=== PATIENT | male | born 1945 | race Caucasian/White ===

== ENCOUNTER 2019-03-30 15:42 | Outpatient (CLI) | payer BC ==
--- NOTE | 2019-03-30 17:03 | MRI ---
MRI cervical spine. HISTORY: Complaining of neck pain. The patient also has history of cervical radiculitis. Multiplanar multisequence noncontrast enhanced MRI images cervical spine obtained. The cervical cord is unremarkable with no evidence of masses or lesions. C1-2: Unremarkable. C2-3: Unremarkable except C3-4: There is a mild broad-based disc bulge resulting in minimal compressi on of the thecal sac. The right neural foramen is patent. Moderate left C3-4 neural foraminal narrowing is seen due to uncal vertebral osteophyte hypertrophy. C4-5: Disc desiccation seen. There is a broad-based disc osteophyte complex centrally compressing the thecal sac resulting in moderate degree of central and neural foraminal narrowing. C5-6: Disc desiccation seen. There is a broad-based disc osteophyte complex centrally compressing the thecal sac resulting in moderate severe central and lateral recess stenosis. Moderate right C5-6 neural foraminal narrowing is seen. The left neural foramen demonstrates severe narrowing. C6-7: There is a broad-based disc osteophyte complex centrally compressing the thecal sac resulting i n mild central stenosis. The neural foramen are patent. C7-T1: Unremarkable. Heterogeneity seen in the thyroid lobes with asymmetric enlargement of the posterior aspect of the ri ght thyroid. Correlate with dedicated thyroid sonography. IMPRESSION: broad-based disc osteophyte complexes with compression of the thecal sac involving C4-5 a nd C5-6. Neural foraminal narrowing also seen at these levels most significant level of stenosis is the left C5-6 neural foramen.
--- NOTE | 2019-03-30 17:25 | MRI ---
Lumbar spine MRI without contrast: 03/30/2019 COMPARISON: None HISTORY: Low back pain radiating down bilateral lower extremities, bilateral radiculopathy TECHNIQUE: Multiplanar multisequence MR imaging of lumbar spine without contrast FINDINGS: The sagittal STIR imaging demonstrates no focal area of osseous marrow edema. Foci of artif act noted within the subcutaneous fat posterior to L4 and L5 consistent with prior surgery. On the basis of 5 lumbar type vertebral bodies, conus medullaris terminates at L1. T12-L1: Anterior osteophyte formation on the left. Intervertebral disc height and signal intensity wi thin normal limits with no significant central canal or neural foraminal stenosis. L1-2: Mild bilateral facet hypertrophy. Intervertebral disc height and signal intensity within normal limits. No central canal or neural foraminal stenosis. Left-sided anterior osteophyte formation. L2-3: Mild bilateral facet hypertrophy. No significant central canal or neural foraminal stenosis. Va cuum disc formation noted. Prominent anterior osteophyte formation. L3-4: Bilateral facet hypertrophy. Disc desiccation and anterior osteophyte formation. No significant central canal or neural foraminal stenosis. L4-5: Disc space narrowing and disc desiccation with bilateral facet hypertrophy. No significant cent ral canal or neural foraminal stenosis. Laminectomy changes noted. L5-S1: Mild bilateral facet hypertrophy. Anterior osteophyte formation. No significant central canal or neural foraminal stenosis. Imaged retroperitoneal structures demonstrate no acute findings. IMPRESSION: Postoperative and degenerative changes of the lumbar spine.
== END 2019-03-30 15:43 | disposition home or self-care (01) ==
LOC: SCSMRI 15:42
PROVIDERS: ATTEND General Practice
DX: M47.26 Other spondylosis with radiculopathy, lumbar region (principal); M54.12 Radiculopathy, cervical region; M25.78 Osteophyte, vertebrae; M48.02 Spinal stenosis, cervical region
CPT/HCPCS: 72141; 72148

== ENCOUNTER 2019-04-04 19:13 | Inpatient (IN) | payer MEDICARE, BC ==
[2019-04-04] MEDS ORDERED: Pantoprazole 40 MG VIAL ONE (19:58)
[2019-04-04 20:00] LABS: PTT 23.7 SEC (22.9-36.1); Prothrombin Time 13.4 SEC (12.0-14.7)
--- NOTE | 2019-04-04 20:02 | RAD ---
XR Chest 1 View Portable History: [GI bleed. Abdominal pain.] Comparison: Radiograph 2010 Findings: Lungs are clear. No pneumothorax or effusion. Cardiac silhouette and mediastinal contours a re within normal limits. Impression: No acute intrathoracic abnormality.
[2019-04-04 20:04] LABS: #Basophils 0.2 thou/uL (0.0-0.2); #Eosinphils 0.1 thou/uL (0.0-0.7); #Lymphocytes 3.9 thou/uL (1.20-3.40); #Monocytes 0.6 thou/uL (0.11-0.59); #Neutrophils 7.4 thou/uL (1.40-6.50); %Basophils 1.5 % (0.0-1.0); %Eosinophils 1.1 % (0.0-10.0); %Lymphocytes 31.6 % (21.0-51.0); %Monocytes 5.2 % (0.0-10.0); %Neutrophils 60.5 % (42.0-75.0); Hemoglobin 15.9 g/dL (14.0-18.0); Mean Corpuscular HGB CONC 36.9 g/dL (32.0-36.0); Mean Corpuscular Hemoglobin 32.5 pg (27.0-31.0); Mean Corpuscular Volume 87.9 fL (78.0-98.0); Mean Platelet Volume 6.5 fL (7.4-10.4); Platelet Count 233 thou/uL (130-400); RBC Distribution Width 10.8 % (11.5-14.5); Red Blood Cell (RBC) Count 4.89 mill/uL (4.70-6.10); White Blood Cell (WBC) Count 12.3 thou/uL (4.8-10.8)
[2019-04-04 20:09] LABS: ALT (SGPT) 31 U/L (8-55); AST (SGOT) 29 U/L (5-34); Albumin 3.9 g/dL (3.4-4.8); Alkaline Phosphatase 50 U/L (40-150); Anion Gap 15 mmol/L (10-20); BUN (Urea Nitrogen) 26 mg/dL (8.4-25.7); Bilirubin, Total 0.7 mg/dL (0.2-1.2); Calc. Creatinine Clearance 0 mL/min (70-130); Carbon Dioxide 17 mmol/L (23-31); Chloride 107 mmol/L (98-107); Estimated GFR-MDRD 70; Globulin 2.6 g/dL (2.4-3.5); Glucose 199 mg/dL (83-110); Potassium 4.2 mmol/L (3.5-5.1); Protein, Total 6.5 g/dL (5.8-8.1); Sodium 135 mmol/L (136-145)
--- NOTE | 2019-04-04 21:02 | CT ---
CT Abdomen Pelvis W Con History: [GI bleed. Abdominal pain.] Comparison: None. Findings: Lung bases are clear. No pericardial effusion. Diffuse hepatic steatosis. There is a diverticulum of the second portion the duodenum. Normal proxima l small bowel rotation. Spleen and pancreas are unremarkable. Celiac trunk and superior mesenteric arteries are patent. The a ortoiliac contour is nonaneurysmal. Small fat-containing left direct inguinal hernia. Mild diverticular disease of the sigmoid colon without active current inflammation. The appendix is f elt to be visualized and appears normal. No hydronephrosis. 4 mm calculus superior left renal collecting system. Portal vein is patent with antegrade flow. Hypodensity, exophytic, interpolar right kidney measures fluid attenuation, suggestive of a cyst. Sma ll periumbilical fat-containing hernia. Moderate degenerative changes of the lumbar spine. Lower thoracic spine hemangiomas present. No free intraperitoneal gas or fluid. Impression: No acute intra-abdominal abnormality.
[2019-04-04] MEDS ORDERED: Fentanyl 100 MCG/2 ML VIAL ONE (21:03)
[2019-04-04 21:30] LABS: Iron 75 ug/dL (65-175); Iron Binding Capacity, Total 276 mcg/dL (261-462)
[2019-04-04] MEDS ORDERED: Ondansetron PF 4 MG/2 ML Vial IVP PRN (22:02)
[2019-04-04] MEDS ORDERED: Ondansetron ODT 4 MG TAB SL PRN (22:02)
[2019-04-04] MEDS ORDERED: Sodium Chloride 0.9% 1,000 ML IV SCH (22:15)
[2019-04-04 22:18] VITALS: BMI 31.6
[2019-04-04] MEDS ORDERED: HYDROcodone/Acetaminophen 5/325 mg Tablet PO PRN (23:25)
[2019-04-04] MEDS ORDERED: Dextrose 50% Abboject 50 ML SYRINGE SLOW IVP PRN (23:26)
[2019-04-04] MEDS ORDERED: Dextrose 5% in Water 1,000 ML IV PRN (23:26)
[2019-04-04] MEDS ORDERED: HumaLOG 300 UNITS/3 ML VIAL SC PRN (23:26)
[2019-04-04] MEDS: Pantoprazole 80 MG, Admixture Fee 1 EACH in Sodium Chloride 0.9% 100 ML IVPB SCH (23:35)
[2019-04-04] MEDS: Sodium Chloride 0.9% 1,000 ML IV SCH (23:42)
[2019-04-04 23:46] LABS: Hemoglobin 14.8 g/dL (14.0-18.0)
[2019-04-05] MEDS: Morphine 2 MG/ML SYRINGE SLOW IVP PRN ×2 (00:21→05:48)
--- NOTE | 2019-04-05 03:27 | CON ---
DATE OF CONSULTATION: 04/04/2019 REASON FOR CONSULT: GI hemorrhage. CONSULTING PHYSICIAN: Yamilet Hernández MD HISTORY OF PRESENT ILLNESS: Mr. Gordon is a pleasant 73-year-old gentleman who was admitted to the hospital ICU for GI bleeding with hemodynamically instability when he presented to the emergency room. He reports that this morning about 7, he started passing bloody stools, he got a couple and then actually he went to his regular physician, Dr. Garcias for routine followup. There, he seemed very stable and had not bled in several hours, doctor had recommended that if it resumed, he was going to need to come to the emergency room. After that, he had another bloody stool which was smaller in his recollection, but he began to feel weak and dizzy and his daughter brought him here to [facility]. He described the stool to be very dark and black and very malodorous, but there was a little bit red tinge to the bowl. He takes an aspirin daily 81 mg, but takes no other NSAIDs. In the emergency room, he initially had a pulse of well over 100, blood pressure 103/69. At one point, his blood pressure was 97/62 with a pulse of 118. He responded to a fluid resuscitation, emergency room gave 1 unit of blood. His hemoglobin, however, was 16.9 back in 07/2015, it is 15.9 at 1940 hours. His MCV was normal. His white count was 8.4, and then at 1940 hours this evening it was 12.3. His platelet count was 233. His daughter who is at the bedside reports that his hemoglobin was actually 19 earlier a couple of weeks ago. She wonders if this is related to his diabetes which has been poorly controlled with sugars in the 300 to 400 range just recently last week and he was started on insulin. Prior to that, he had been on Januvia, metformin, and glyburide of poor control and then had seen an hotel casino floorperson in [place], [place] who started him on the insulin. He does not recall having elevated hemoglobins like that in the past or having any blood disorders. He does note, however, that he has been having muscle soreness and back problems with some severe back pain for which he went to the [facility] about 2 weeks ago. There, he was given steroid injection and to follow up with either Neurosurgery or Neurology. He has had some back surgeries in the past, and he states he recently was told that he probably had a disk problem. He is adamant that he has been taking no [id number] or prescribed NSAIDs. Another issue he had noted recently with his primary physician and acknowledges is that his "muscle enzymes" have been high. Both stated they were not overly concerned about this. When asked this is a CPK, neither him or his daughter were sure that was it. Presently, he has had no further bleeding since about 5 this evening. He has had no nausea or vomiting. He reports about a 10-pound weight loss attributes this to his poorly controlled diabetes. He has some lower abdominal discomfort, but no fever or chills, or severe pain. He has no nausea and he has had no vomiting. PAST MEDICAL HISTORY: He has had chronic back issues, had surgery x2. He has had a bulging disk diagnosed recently. He has had cardiac stents, the last about [address] Aidan Apple. He had a GI bleed about 4 or 5 years ago. He has been to Med. He states he did an upper scope and did not find anything. He did a lower scope, but did not find anything and after that, his antiplatelet agents were stopped. He was dropped to 81 mg aspirin, told not to take ibuprofen or Aleve. He has had a colonoscopy as recently as 4-5 years ago in our office for colon cancer screening and history of polyps and a couple of adenomas removed. He denies any previous myocardial infarction or history of heart failure. He has poorly-controlled diabetes type 2. He had sequela of retinopathy from that. PAST SURGICAL HISTORY: Cardiac stents, back surgery x2, bilateral cataract surgery, and endoscopies as noted above. PSYCHIATRIC HISTORY: Negative. SOCIAL HISTORY: Negative for alcohol, drugs, or tobacco. Lives in [place], [place]. He is accompanied by his daughter here today. ALLERGIES: NONE KNOWN. MEDICATIONS: 1. . 2. Levothyroxine 75 mcg daily. 3. Baby aspirin daily. 4. He was previously on statins, but did not tolerate those secondary to muscle aches and pain. Present medications here in the ICU; he is on a Protonix drip. He is on Zofran p.r.n., p.r.n. morphine, and normal saline at 100 an hour. Home medications; he has had some hydrocodone in the past. He was on Flexeril and glimepiride, he is off that now. He is on calciferol, some metformin that has been removed from his medicines. REVIEW OF SYSTEMS: Myalgias, diffuse. He also had some back pain that made difficult for him to walk recently. He has lost about 10 pounds. His appetite has been down some. He attributes this to some of his diabetic problems recently and change to what he is eating. He denies any reflux, heartburn, indigestion. He denies any chest pain or shortness of breath. He feels generally weak presently. He has no dysuria, frequency, urgency, fever, chills, rashes, vision changes, headache, focal weakness, seizures. PHYSICAL EXAMINATION: VITAL SIGNS: Temperature is 98, pulse 75, blood pressure 106/66. GENERAL: He is resting comfortably, but he is julia complected. HEENT: Oropharynx is without lesions. NECK: Supple without any adenopathy. LUNGS: Clear. HEART: Sounds are distant. ABDOMEN: Has positive bowel sounds. There is an umbilical hernia which is reducible. There is no rebound. There is no guarding. There is no inguinal adenopathy. EXTREMITIES: No clubbing, cyanosis, edema. SKIN: Without rash or lesions. LABORATORY DATA: Sodium 135, potassium 4.2, chloride 107, bicarb 17, BUN 26, creatinine 1.04. On 08/15/2015, his BUN was 11 and creatinine was 0.97. Iron is 75, TIBC 276, ferritin is 197. AST and ALT are 29 and 31, alkaline phosphatase is 50, albumin 3.9, total protein 6.5. INR was 1. He was Hemoccult positive in the emergency room. IMAGING STUDIES: I reviewed his CAT scan. This reportedly showed no acute intraabdominal pathology. He had some fatty liver present. Spleen and pancreas are unremarkable. Celiac vessels are normal. Small umbilical hernia. Left direct inguinal hernia. These films were reviewed by myself. Chest x-ray, lungs clear. Cardiac mediastinal contour is normal. ASSESSMENT: 1. Gastrointestinal bleed. He has a little bit of elevated BUN, but also some renal insufficiency and maybe has been dehydrated recently with a reported hemoglobin of 19 recently in his primary physician's office. This has been attributed to some dehydration related to frequent urination, presumptively related to his poorly-controlled diabetes. He has been started on different insulin recently and has been doing better with that. His hemoglobin here dropped down to 15. It was mildly unstable on admission, but that is corrected now. His CAT scan does show diverticulosis coli. His stool has been described as black, but there was some red mix in the bowl. On my rectal exam this evening, it is fairly black with a slight dark red maroon tinge to it. There was no clot and the rectal vault was empty. He had no overt hemorrhoids. He has a history of bleeding in 2013 or 2014 [facility]. It sounds like that may have been diverticular. His upper and lower endoscopies were unrevealing except for diverticular disease. He has had no bleeding since. He takes no NSAIDs or blood thinners, just a baby aspirin. His diverticular disease is limited to the left colon and with the description of black stool, I think he will need an upper endoscopy to rule out upper GI source. If this is negative, he will probably need a repeat colonoscopy as he has not had one about 5 years. He has not had one sine 09/2015. I am afraid of acute bleeding tonight. A tagged red blood cell scan would be indicated. I agree with his IV fluids, we will drop into 75 an hour as he is stable at this point in time and agree with the Protonix drip. Again, if he has acute bleeding tonight, we will get a tagged scan. 2. With regard to his history of muscle soreness, we will go ahead and get a CPK as he related that he had some elevated muscle enzymes of unclear etiology. 3. With regard to his back pain, he did have an MRI of his cervical and lumbar spine with Dr. Garcias on 03/30. It showed degenerative changes in lumbar spine, broad-based disk osteophyte complexes, compression of thecal sac involving C4-C5 and C5-C6 with some neural foraminal narrowing, most significant with some stenosis at C5-C6 foramina. 4. History of diabetes, poorly controlled, sugar is 199. We will get a hemoglobin A1c, and his overall control has been lately I suspect not good. Job ID: [id number]
--- NOTE | 2019-04-05 04:06 | HP ---
PRIMARY CARE PHYSICIAN: Dr. Peña [facility]. CODE STATUS: Full code. TIME OF EVALUATION: 10:40 p.m. CHIEF COMPLAINT: Black stools. HISTORY OF PRESENT ILLNESS: This is a 73-year-old male patient with past medical history of previous GI bleeding, also back problems, cardiac stents, diabetes type 2, came to the hospital after having an episode of melena x3, also have some red blood in the stool. The patient reported the symptom started early this morning. The patient went to see his PCP, who told him to go to the ER and symptoms got worse. The patient got very weak and lightheaded, also had some nausea. No vomiting. Symptoms were mild to moderate. No clear triggers, no alleviating factor. He was found to be hypotensive with systolic in the 80s with heart rate in the 110s, with ambulation, heart rate went up to 140s to 150s, sinus tachycardia. For that reason, he started getting transfusion in [facility] and was sent to our hospital placing him in ICU for close monitoring. Dr. Higgins has been consulted. REVIEW OF SYSTEMS: CONSTITUTIONAL: No fevers or generalized weakness. RESPIRATORY: No cough, sputum production, or shortness of breath. CARDIOVASCULAR: No chest pain, or palpitation. GASTROINTESTINAL: No nausea, vomiting, diarrhea or abdominal pain. FICTION AND NONFICTION AUTHOR: No dizziness, headache, or feeling lightheaded. GENITOURINARY: No burning on urination. EXTREMITIES: No leg swelling. All other systems were reviewed and negative except for the findings mentioned above. PAST MEDICAL HISTORY: As mentioned in the HPI. PAST SURGICAL HISTORY: Cardiac stents, back surgery x2, bilateral cataracts. PSYCHIATRIC HISTORY: No previous psychiatric history. SOCIAL HISTORY: The patient denies alcohol use. The patient denies drug use. No smoking history. FAMILY HISTORY: Reviewed and the patient has a mother with blood cancer and father with liver cancer. KNOWN ALLERGIES: No known drug allergies. REPORTED MEDICATIONS: Tresiba and levothyroxine. PHYSICAL EXAMINATION: VITAL SIGNS: On presentation, blood pressure 103/69 with heart rate 95, respiratory rate was 17, oxygen saturation was 96% on room air. GENERAL APPEARANCE: The patient is alert, oriented, not in acute distress. HEENT: Eyes normal conjunctivae. Moist oral mucosa. Anicteric. No JVD. RESPIRATORY: Bilateral air entry. No rales. No wheezing. Symmetric expansion. CARDIOVASCULAR: Normal rate, regular rhythm. No murmurs. No gallop. No edema. ABDOMEN: Soft, normal bowel sounds. MUSCULOSKELETAL: Baseline range of motion and strength. No tenderness. SKIN: Warm, intact. No pallor. No rash. No redness. Peripheral pulses are present. Capillary refill seems to be intact. NEUROLOGIC: No evidence of any new or focal weakness. Baseline speech. Cranial nerves seems to be intact. PSYCHIATRIC: The patient has good mood. No anxiety. Optimal judgment. IMAGING STUDIES: EKG was reviewed. The patient has normal sinus rhythm with a rate of 96 with Q-waves in lead II, III and AVF. No other significant changes. Abdomen and pelvis CT was performed and it was reported as no acute intraabdominal abnormality. The chest x-ray was reviewed and the patient has no acute intrathoracic abnormality. LABORATORY DATA: Labs were reviewed. The patient presented with white count 12.3, hemoglobin 15.9, the repeated one 14.8, and the platelet count 233. Coagulation; PT 13.4, INR 1.0, PTT 23.7. Chemistry; sodium 135, potassium 4.2, chloride 107, carbon dioxide 17, anion gap 15, BUN 26, creatinine 1.0, GFR 70, glucose 199, calcium 9.0, iron 175, TIBC 276, ferritin 197, total bilirubin 0.7, AST 29, ALT 31, alkaline phosphatase 50 with serum total protein 6.5, albumin 3.9, globulin 2.6, albumin globulin ratio is 1.5. ASSESSMENT AND PLAN: The patient will be placed in the hospital with following medical problems: 1. Acute gastrointestinal bleeding, the patient will receive blood transfusion that was started in ER, we will continue to monitor hemoglobin. We consulted GI and we will follow recommendations. Protonix, watch for hemodynamic instability. 2. Hyponatremia, sodium 135, this is mild, we will monitor, we will treat with hydration with NS that the patient is receiving already. 3. Uncontrolled diabetes. The patient presented with hyperglycemia. Blood sugar 199. We will place the patient on sliding scale for optimal control. As of now, the patient will be n.p.o. 4. History of coronary artery disease, this is a chronic problem, seems to be stable. We will monitor and treat accordingly. 5. Hypothyroidism, reconcile home medications. Continue hormone replacement. Job ID: [id number]
[2019-04-05 05:00] LABS: Hemoglobin 14.1 g/dL (14.0-18.0)
[2019-04-05] MEDS: Levothyroxine Sodium 75 MCG TAB PO SCH (05:40)
--- NOTE | 2019-04-05 09:13 | PRG ---
DATE OF SERVICE: 04/05/2019 SUBJECTIVE: The patient is seen and examined at the bedside. He is getting ready for his colonoscopy this morning by Dr. Higgins. He has some abdominal discomfort in the lower parts of his abdomen, but not severe. It is kind of aching. Otherwise, he feels okay. OBJECTIVE: VITAL SIGNS: Blood pressure is 92/55, pulse is 77, respiratory rate is 21, and O2 saturation 97% on room air. HEENT: His head is atraumatic and normocephalic. Eyes are PERRLA. Sclerae are nonicteric. Oral mucosa is slightly dry. NECK: Supple. LUNGS: Breath sounds are diminished at both bases. HEART: S1 and S2 normal. No S3. No S4. ABDOMEN: Soft, nontender. Bowel sounds are present. No organomegaly. There is some pain on palpation in the pelvic area bilaterally. No guarding. No masses. EXTREMITIES: No clubbing, cyanosis, or edema. He has good pulses on both tibialis posterior and dorsalis pedis arteries similar bilaterally. LABORATORY DATA: Labs showed hemoglobin of 14.1, hematocrit 40.8, glucose 117, and creatine kinase 49. Occult blood in the stool is positive. IMPRESSION: 1. Acute gastrointestinal bleeding, presenting with melena on Protonix drip, hemoglobin stable, getting ready for colonoscopy. 2. Uncontrolled diabetes mellitus, type 2, recently changed to Tresiba by casino cage manager. His glycemia is down to 100s now. 3. History of coronary artery disease, chronic, stable. 4. Hypothyroidism, on replacement. PLAN: Continue PPI, IV drip. Continue Synthroid. Continue sliding scale with insulin, mild level. Colonoscopy today. Follow up with Jackelyn and H. Job ID: [id number]
[2019-04-05] MEDS: Pantoprazole 80 MG, Admixture Fee 1 EACH in Sodium Chloride 0.9% 100 ML IVPB SCH ×2 (09:49→21:06)
--- NOTE | 2019-04-05 09:56 | CON ---
DATE OF CONSULTATION: HISTORY OF PRESENT ILLNESS: Toni Gordon is a 73-year-old gentleman, who is 214 pounds, 5 feet 9 inches, presented with symptoms of maroon and dark black stools. He is lightheaded. He is having significant leg pain without any abdominal pain, nausea, vomiting. He has had previous GI bleed 10 years ago. Apparently, workup at that time was not conclusive. PAST MEDICAL HISTORY: Coronary artery disease, chronic pain, peripheral neuropathy. Otherwise as noted pertinent for his carotid disease, chronic pain, arthritis, diabetes, previous GI bleed. PREVIOUS SURGERIES: Three cardiac stents, back surgery twice, cataract surgery. SOCIAL HISTORY: He is a retired [employer]. No alcohol or tobacco abuse. ALLERGIES: PRESUMABLY FLU-LIKE SYMPTOMS FROM STATINS. HOME MEDICATIONS: Synthroid 75, Tresiba 100 units, aspirin 81. PHYSICAL EXAMINATION: GENERAL: Awake, alert, responsive, in no distress. VITAL SIGNS: Sats are 95% on room air, temperature 98, blood pressure 102/61, respiratory rate 18. CHEST: No wheezing, crackles. CARDIAC: Normal S1, S2. No gallops. ABDOMEN: No masses. LABORATORY DATA: He had a chest x-ray taken yesterday, which shows no acute infiltrates. CT of abdomen was otherwise unrevealing. H and H 14 and 40. Chemistries were unremarkable. Glucose 170. ASSESSMENT: 1. Gastrointestinal bleed. 2. Obesity. 3. Diabetes. 4. Coronary artery disease. 5. Peripheral neuropathy. PLAN: Await GI input. He is already on Protonix. Supportive care. We will follow him in the ICU. Consultation note, 70 minutes, 50% direct patient care. Job ID: [id number]
[2019-04-05 12:00] LABS: Hemoglobin 14.2 g/dL (14.0-18.0)
[2019-04-05] MEDS ORDERED: Lidocaine 1% PF 5 ML VIAL ONE (15:23)
[2019-04-05] MEDS ORDERED: PROPOFOL 200 MG/20 ML VIAL ONE (15:23)
[2019-04-05 17:28] LABS: Hemoglobin 13.5 g/dL (14.0-18.0)
[2019-04-05] MEDS ORDERED: GoLYTELY 4,000 ml Bottle PO SCH (18:00)
[2019-04-05] MEDS: Sodium Chloride 0.9% 1,000 ML IV SCH ×2 (18:11→21:10)
--- NOTE | 2019-04-05 22:45 | OP ---
DATE OF PROCEDURE: 04/05/2019 CHIEF VENDOR QUALITY SURGEON: None. PROCEDURES PERFORMED: EGD, diagnostic. INDICATION: Melena. MEDICATIONS: See Anesthesia record. FINDINGS: After discussion of the risks, benefits, and alternatives of the procedure, informed consent was obtained and witnessed. Pre-endoscopic cardiopulmonary examination was satisfactory. Time-out was performed before sedation was achieved. Sedation was achieved with Anesthesia assistance in the endoscopy unit. A Pentax adult upper endoscope was placed into the oropharynx and passed through the cricopharyngeus under direct visualization. The esophageal mucosa appeared normal throughout with a normal-appearing Z-line. The endoscope was advanced into the stomach. Forward and retroflexed views of the entire gastric mucosa were obtained. The gastric mucosa appeared normal throughout. There was no evidence of any old blood or active bleeding or bleeding lesion. The endoscope was advanced through the pylorus and into the first and second portions of the duodenum, which also appeared normal. The upper endoscope was completely withdrawn and the patient allowed to recover. The patient tolerated the procedure well. There were no immediate postprocedure complications. IMPRESSION: Normal EGD. RECOMMENDATION: Administer bowel preparation tonight for colonoscopy tomorrow. Job ID: [id number]
[2019-04-06] MEDS: Morphine 2 MG/ML SYRINGE SLOW IVP PRN ×2 (02:13→07:52)
[2019-04-06] MEDS: Levothyroxine Sodium 75 MCG TAB PO SCH (06:26)
[2019-04-06 06:38] LABS: Hemoglobin 12.6 g/dL (14.0-18.0)
[2019-04-06] MEDS: Pantoprazole 80 MG, Admixture Fee 1 EACH in Sodium Chloride 0.9% 100 ML IVPB SCH ×2 (07:29→18:36)
--- NOTE | 2019-04-06 08:31 | PRG ---
DATE OF SERVICE: 04/06/2019 SUBJECTIVE: The patient is seen and examined at the bedside. He is somewhat drowsy this morning. He just had an injection of morphine for his pain in lower extremities. He is getting ready for colonoscopy, although he is not very well prepared for that. OBJECTIVE: VITAL SIGNS: Blood pressure is 99/59, pulse is 68 respiratory rate is 9. Pulse oximetry is within normal limits. HEENT: His head is atraumatic and normocephalic. Eyes are PERRLA. Sclerae are nonicteric. Conjunctivae pinkish. Oral mucosa is moist. NECK: Supple. LUNGS: Clear. HEART: S1, S2 normal. No S3. No S4. ABDOMEN: Soft, nontender. Bowel sounds are present. No organomegaly. EXTREMITIES: No clubbing, cyanosis or edema. NEUROLOGICAL EXAMINATION: He is alert and oriented x4. He is somewhat drowsy from the morphine injection he just recently got, but he is able to move his all four extremities and he has some peripheral neuropathy in the lower extremities. LABORATORY DATA: Labs showed his hemoglobin level at 13.5, hematocrit 38.4. Glycemia is ranging from 117 to 241. IMPRESSION: 1. Acute gastrointestinal blood loss, status post esophagogastroduodenoscopy, which was negative. Preparation for colonoscopy is made today. Continue Protonix drip. Hemoglobin is stable. 2. Uncontrolled diabetes mellitus, most likely because of current changes on his regimen. 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 3. History of coronary artery disease, chronic, stable. 4. Hypothyroidism, on replacement. PLAN: He is going to have colonoscopy this morning. We will continue current regimen. We will continue sliding scale and he had most likely bleed from diverticular disease. Job ID: [id number]
--- NOTE | 2019-04-06 09:07 | PRG ---
DATE OF SERVICE: 04/06/2019 SUBJECTIVE: This morning, awake, alert, and responsive. He is to go for colonoscopy since he did have a bowel prep. OBJECTIVE: VITAL SIGNS: Blood pressure is 99/59, pulse 80, respirations . CHEST: No wheezing. CARDIAC: Normal S1, S2. No gallops. ABDOMEN: No masses. LABORATORY DATA: Hemoglobin is 12.6. Glucose 102. ASSESSMENT: Gastrointestinal bleed, hypothyroidism, obesity, diabetes. PLAN: Pulmonary follow while in the ICU. Disposition following his colonoscopy. Job ID: [id number]
[2019-04-06] MEDS: Sodium Chloride 0.9% 1,000 ML IV SCH ×2 (10:33→23:04)
[2019-04-06 12:32] LABS: Hemoglobin 12.9 g/dL (14.0-18.0)
[2019-04-06] MEDS ORDERED: ePHEDrine 50 MG/ML VIAL ONE (17:28)
[2019-04-06] MEDS ORDERED: Lidocaine 1% PF 5 ML VIAL ONE (17:28)
[2019-04-06] MEDS ORDERED: PROPOFOL 200 MG/20 ML VIAL ONE (17:28)
[2019-04-06] MEDS ORDERED: PHENYLEPHRINE-NS 100 MCG/ML 10 ML SYRINGE ONE (17:28)
[2019-04-06] MEDS ORDERED: Glycopyrrolate 0.2 MG/ML 5 ML SYRINGE ONE (17:28)
[2019-04-06] MEDS ORDERED: Promethazine HCl 25 MG/ML VIAL IM PRN (17:33)
[2019-04-06] MEDS ORDERED: Ondansetron HCl/PF 4 MG/2 ML Vial IVP PRN (17:33)
[2019-04-06] MEDS ORDERED: Promethazine HCl 25 MG/ML VIAL SLOW IVP PRN (17:33)
[2019-04-06] MEDS ORDERED: Morphine Sulfate 2 MG/ML SYRINGE SLOW IVP PRN (17:33)
--- NOTE | 2019-04-06 23:40 | OP ---
DATE OF PROCEDURE: 04/06/2019 FINISHING PAN OPERATOR SURGEON: None. PROCEDURE PERFORMED: Colonoscopy, diagnostic. INDICATIONS: 1. GI bleeding. 2. Negative EGD yesterday. MEDICATIONS: See Anesthesia record. FINDINGS: After discussion of the risks, benefits, and alternatives of the procedure, informed consent was obtained and witnessed. Pre-endoscopic cardiopulmonary examination was satisfactory. Time-out was performed before sedation was achieved. Sedation was achieved with anesthesia assistance in the endoscopy unit. Digital rectal exam was performed, which was unremarkable. A Pentax adult colonoscope was inserted into the anus and passed forward to the cecum in the usual fashion. The cecal base was identified by the appendiceal orifice as well as the ileocecal valve. The terminal ileum was not intubated. The colonoscope was slowly withdrawn in a gradual circumferential manner with careful examination of the colonic mucosa. The quality of the prep was poor. There was a large amount of semi-liquid dark green stool throughout the colon. The prep was certainly not adequate to identify small colon polyps. It is possible that there may be small mucosal based lesions that might have been missed. However, there was no evidence of any old blood or active bleeding throughout the colon. The stool was dark and greenish in color, but there was no evidence of any fresh blood. The patient had extensive diverticulosis throughout the left side of the colon and also internal hemorrhoids demonstrated on retroflexion. The colonoscope was completely withdrawn and the patient allowed to recover. The patient tolerated the procedure well. There were no immediate postprocedure complications. IMPRESSION: 1. Poor bowel prep, with a large amount of semi-liquid dark green stool throughout the colon. 2. No evidence of any old blood or active bleeding. 3. Internal hemorrhoids. 4. Left-sided diverticulosis. RECOMMENDATIONS: 1. Advance diet. 2. Follow up H and H tomorrow. If stable, okay to discharge from a GI perspective. 3. Follow up in the GI Clinic with Dr. Krishna. The patient will need repeat colonoscopy on an outpatient basis. Job ID: [id number]
[2019-04-07] MEDS: Levothyroxine Sodium 75 MCG TAB PO SCH (06:17)
[2019-04-07 07:47] VITALS: TEMP 97.7
[2019-04-07] MEDS ORDERED: Pantoprazole 40 MG VIAL IVP SCH (09:00)
[2019-04-07 09:01] LABS: Hemoglobin 13.1 g/dL (14.0-18.0)
[2019-04-07] MEDS: Sodium Chloride 0.9% 1,000 ML IV SCH (10:10)
--- NOTE | 2019-04-07 12:16 | PRG ---
DATE OF SERVICE: 04/07/2019 SUBJECTIVE: Mr. Gordon is in no distress. Apparently, he has been scheduled for discharge. OBJECTIVE: VITAL SIGNS: His blood pressure is 109/77, heart rate 72, and respiratory rate 16. LUNGS: Completely clear. HEART: Regular rhythm. ABDOMEN: Soft and nontender. EXTREMITIES: Without edema. LABORATORY DATA: Hemoglobin is 13.1 this morning. IMPRESSION AND PLAN: Gastrointestinal bleed reportedly felt to be likely diverticular. His hemoglobin is stable. He will need to follow up with the physician on Tuesday or Tuesday and have a hemoglobin check. Other plans will be per Gastroenterology and primary care. Job ID: [id number]
--- NOTE | 2019-04-08 04:42 | DIS ---
DATE OF ADMISSION: 04/04/2019 DATE OF DISCHARGE: 04/07/2019 DIAGNOSES AT THE TIME OF DISCHARGE: 1. Acute gastrointestinal bleeding of still unclear etiology, status post EGD normal, and nondiagnostic colonoscopy. It is suspected diverticular source of bleeding. At this point, it is stable. 2. Uncontrolled diabetes mellitus. 3. Coronary artery disease, chronic, stable. 4. Hypothyroidism, on replacement. CONSULTANTS: Dr. Ovidio Barry, Gastrointestinal Service and Dr. Darin Higgins, Gastrointestinal Service. PROCEDURES: EGD and colonoscopy. HOSPITAL COURSE: The patient was a 73-year-old male, who was admitted to the hospital with history of melena with some red blood in the stool. The patient got quite weak. He saw his PCP, who advised him to go to the emergency room and he ended up in the emergency room after he got weak and lightheaded. Also, he had some nausea. No vomiting. He was found to be hypotensive with systolic in the 80s and heart rate in 110, with ambulation the heart rate was going up to 140s 150s with sinus tachycardia, infused with a pack red blood cells and sent to our emergency room from [facility]. GI was consulted Dr. Higgins saw the patient. At the time of admission to the hospital, his white count was 12.3, hemoglobin was 15.9, repeated level was 14.8, INR was 1.0. PT was 13.4. Chemistry was within normal limits. His iron was 175, TIBC 276, ferritin 197. Normal liver function tests. The patient got admitted to the intensive care unit with IV Protonix drip. X-ray at the time of admission did not show any acute abnormalities and his CT of the abdomen and pelvis showed no acute intraabdominal abnormality. The patient was taken to the procedure room where he had EGD done, which did not show any abnormalities. His hemoglobin level was followed and he was trailing between 13.5 to 14.0 and 14.2. Subsequently, he had colonoscopy done, which was not very diagnostic. There was a lot of greenish liquidy stool in the colon and mill roll operator was not able to identify any specific source of bleeding in the rectum. He recommended to do colonoscopy on outpatient basis by his primary technical sales director, Dr. Krishna after the patient is stabilized and discharged. So, the patient did very well. His hemoglobin today is 13.1. He had total of 1 unit of packed red blood cells transfused and his vitals are stable. His blood pressure is systolic more than 120 and he is not tachycardic. He did some walking around and he feels good. He does not have any complaints to offer. He is seen and examined before he is discharged home in good condition. ACTIVITY: As tolerated. DIET: Diabetic, 2000 calories ADA. MEDICATIONS AT THE TIME OF DISCHARGE: 1. Continue ubiquinone which is coenzyme Q10 100 mg once a day. 2. Levothyroxine 75 mcg once a day. 3. Tresiba the same dose he was taking before. FOLLOWUP: The patient is going to call Dr. Krishna's office on Tuesday and set up followup appointment. TIME SPENT: Time spent on this discharge is less than 30 minutes. Job ID: [id number]
== END 2019-04-07 11:16 | disposition home or self-care (01) | DRG 378 ==
LOC: SCSER 19:13 → CCU 20:43
PROVIDERS: ADMIT Hospitalist; ATTEND Hospitalist
PROC: 30233N1 Transfusion of Nonautologous Red Blood Cells into Peripheral Vein, Percutaneous Approach (ICD-10-PCS; 2019-04-04)
PROC: 0DJ08ZZ Inspection of Upper Intestinal Tract, Via Natural or Artificial Opening Endoscopic (ICD-10-PCS; principal; 2019-04-05)
PROC: 0DJD8ZZ Inspection of Lower Intestinal Tract, Via Natural or Artificial Opening Endoscopic (ICD-10-PCS; 2019-04-06)
DX: K57.31 Diverticulosis of large intestine without perforation or abscess with bleeding (principal); E87.1 Hypo-osmolality and hyponatremia; K64.8 Other hemorrhoids; I95.9 Hypotension, unspecified; R00.0 Tachycardia, unspecified; E11.65 Type 2 diabetes mellitus with hyperglycemia; I25.10 Atherosclerotic heart disease of native coronary artery without angina pectoris; E03.9 Hypothyroidism, unspecified; G89.29 Other chronic pain; E11.42 Type 2 diabetes mellitus with diabetic polyneuropathy; M19.90 Unspecified osteoarthritis, unspecified site; E66.9 Obesity, unspecified; Z88.8 Allergy status to other drugs, medicaments and biological substances; Z68.36 Body mass index [BMI] 36.0-36.9, adult; Z79.899 Other long term (current) drug therapy; Z79.82 Long term (current) use of aspirin; Z79.4 Long term (current) use of insulin
CPT/HCPCS: 36415; 36416; 36430; 71045; 74177; 80053; 82274; 82550; 82728; 83540; 83550; 85014; 85018; 85025; 85610; 85730; 86850; 86900; 86901; 93005; 96361; 96374; 96375; C9113; J2001; J2270; J2704; J3010; J3490; P9016

== ENCOUNTER 2019-09-11 06:43 | Inpatient (IN) | payer MEDICARE, BC ==
[2019-09-11 07:00] LABS: #Eosinphils 0.1 thou/uL (0.0-0.7); #Monocytes 0.7 thou/uL (0.11-0.59); #Neutrophils 7.2 thou/uL (1.40-6.50); %Basophils 0.3 % (0.0-1.0); %Eosinophils 1.2 % (0.0-10.0); %Lymphocytes 20.4 % (21.0-51.0); %Monocytes 6.6 % (0.0-10.0); %Neutrophils 71.6 % (42.0-75.0); Mean Corpuscular HGB CONC 35.9 g/dL (32.0-36.0); Mean Corpuscular Hemoglobin 31.6 pg (27.0-31.0); Mean Corpuscular Volume 88.2 fL (78.0-98.0); Platelet Count 186 thou/uL (130-400); RBC Distribution Width 13.2 % (11.5-14.5); Red Blood Cell (RBC) Count 5.39 mill/uL (4.70-6.10)
[2019-09-11 07:17] LABS: ALT (SGPT) 18 U/L (8-55); AST (SGOT) 26 U/L (5-34); Albumin 3.7 g/dL (3.4-4.8); Alkaline Phosphatase 84 U/L (40-110); Anion Gap 13 mmol/L (10-20); BUN (Urea Nitrogen) 10 mg/dL (8.4-25.7); Bilirubin, Total 0.7 mg/dL (0.2-1.2); Calc. Creatinine Clearance 0 mL/min (70-130); Calcium 8.3 mg/dL (7.8-10.44); Carbon Dioxide 19 mmol/L (23-31); Chloride 108 mmol/L (98-107); Estimated GFR-MDRD 67; Globulin 2.7 g/dL (2.4-3.5); Glucose 193 mg/dL (83-110); INR-International Normal Ratio 1.1; Potassium 4.4 mmol/L (3.5-5.1); Protein, Total 6.4 g/dL (5.8-8.1); Prothrombin Time 14.5 SEC (12.0-14.7); Sodium 136 mmol/L (136-145)
[2019-09-11 07:25] LABS: PTT 140.9 SEC (22.9-36.1)
[2019-09-11 07:43] LABS: CKMB 6.6 ng/mL (0-6.6)
[2019-09-11] MEDS ORDERED: Fentanyl 250 MCG/5 ML VIAL ONE ×3 (07:54→11:03)
[2019-09-11] MEDS ORDERED: Midazolam HCl 5 mg/5 ml Vial ONE ×2 (07:54→11:03)
[2019-09-11] MEDS ORDERED: Sodium Chloride 0.9% 200 ML IV PRN (08:02)
[2019-09-11] MEDS ORDERED: Nitroglycerin 0.4 MG TAB (25 Tab Bottle) SL PRN (08:02)
[2019-09-11] MEDS ORDERED: Acetaminophen/Codeine 30-300mg Tablet PO PRN (08:02)
[2019-09-11] MEDS ORDERED: Heparin 10,000 UNITS/ 10 ML VIAL SLOW IVP SCH ×3 (08:15)
[2019-09-11] MEDS ORDERED: Nitroglycerin 2% Ointment 1 INCH/1 GM Packet ONE (08:28)
[2019-09-11] MEDS ORDERED: Heparin 10,000 UNITS/1 ML VIAL 30,000 UNITS in Sodium Chloride 0.9% 1,000 ML FS SCH (08:30)
[2019-09-11 08:37] LABS: Cardiac Risk 4.4 (Less than 4.5)
[2019-09-11] MEDS ORDERED: CEFAZOLIN 1 GM VIAL SLOW IVP SCH (09:00)
[2019-09-11] MEDS ORDERED: Heparin 25,000 units/D5W 500 ML IV SCH (09:45)
[2019-09-11] MEDS ORDERED: CEFAZOLIN 2 GM in Premix Bag 1 BAG IVPB SCH (10:00)
--- NOTE | 2019-09-11 10:22 | CON ---
DATE OF CONSULTATION: 09/11/2019 HISTORY OF PRESENT ILLNESS: Mr. Gordon is a 74-year-old gentleman, whom I was called urgently to the slab polisher to evaluate. He presented with an ST-elevation myocardial infarction. EKG changes were inferior. He has a history of previous coronary artery disease, status post stenting x2 of his LAD by Dr. Apple. The last was about five years ago. He woke up this morning with chest pain, was brought to the emergency department and was found to have a STEMI. He was given heparin, aspirin, and morphine and transported here from [place]. He has been taken to slab polisher urgently. Cardiac catheterization shows a critical left main stenosis. He has no bypassable limb target. He has an LAD distal to the stents that is bypassable and a diagonal that is bypassable. His posterior descending artery is diffusely diseased and small and nonbypassable. The posterolateral artery should be bypassable. There is a proximal right coronary critical stenosis. The patient is currently on a heparin drip, is chest pain free. He has an arterial sheath in the right groin. PAST MEDICAL HISTORY: 1. Coronary artery disease. 2. Diabetes mellitus. 3. Hypertension. 4. Back pain with back surgery x2. 5. History of cataracts. PAST SURGICAL HISTORY: 1. Hemorrhoid surgery. 2. Multiple endoscopies for GI bleed that has never been diagnosed. 3. Back surgery x2. 4. Bilateral cataract surgery. SOCIAL HISTORY: He does not use tobacco or alcohol. He lives in [place]. ALLERGIES: STATINS-MAKES HIM FEEL LIKE HE HAS A FLU. MEDICATIONS AT HOME: 1. CoQ10 of 100 mg daily. 2. Levothyroxine 75 mcg daily. 3. Tresiba 100 units daily. 4. Glimepiride. PHYSICAL EXAMINATION: GENERAL: This is a well-developed, well-nourished man, resting comfortably on the slab polisher table. VITAL SIGNS: His heart rate is 80 and regular. His EKG is normalized. Blood pressure is 130/72. LUNGS: Clear bilaterally. HEART: Rhythm is regular without murmur. ABDOMEN: Soft and nontender. EXTREMITIES: There is no edema. VASCULAR: He has palpable carotid radial and femoral dorsalis pedis pulses bilaterally. PSYCHIATRIC: He is awake, alert, and oriented to person, place, and time. ASSESSMENT AND PLAN: Critical left main and right main coronary stenoses. I have discussed emergent coronary artery bypass grafting with him and he is agreeable. We will continue his heparin drip for right now until an OR is ready. We will plan for mammary artery to distal LAD, saphenous vein graft to the diagonal, and posterolateral branch. Job ID: [id number]
[2019-09-11] MEDS ORDERED: Bupivacaine HCl 0.5%/Epinephrine 1:200,000/PF 30 ml Vial ONE (10:39)
[2019-09-11] MEDS ORDERED: Dexamethasone 4 mg/ml Vial ONE (10:39)
--- NOTE | 2019-09-11 11:04 | HP ---
HISTORY OF PRESENT ILLNESS: Toni Gordon is a 74-year-old white male, who has undergone previous stent procedures by Dr. Apple. The first was here at [place] in December 1997 with a proximal LAD stent. He also had 2 other stents placed at [facility], the last which was in approximately 2013. Over the last several days, he has been having increasing chest pains. He then awoke at 4 a.m. with chest pressure, but denied any nausea, vomiting, diaphoresis, or shortness of breath. He called his daughter, and Paramedics were called. Initial EKG showed [address]-segment elevation in II, III, and F, and he was given another three baby aspirin (he took a baby aspirin earlier) 4000 units of heparin and placed on 1000 per hour heparin drip and then transferred from [place] at his home here. At the present time, his chest discomfort has improved, but is still somewhat present. EKG showed significant improvement with ST segments returning into baseline. PAST MEDICAL HISTORY: Diabetes. He denies any history of hypertension or hypercholesterolemia. Even though he denies any history of hypercholesterolemia , he states he cannot take any statin medicine, because it caused muscle pain. He has hypothyroidism. He also was hospitalized here in March 2019 with gastrointestinal bleeding of unclear etiology with normal EGD and colonoscopy. It was felt this was probably due to diverticular bleeding. MEDICATIONS: 1. Levothyroxine 75 mcg. 2. CoQ10 100 mg daily. 3. Baby aspirin 1 daily. 4. Tresiba 100 units daily. ALLERGIES: STATINS CAUSE MUSCLE PAIN. PAST SURGICAL HISTORY: Back surgery, stent placement, hemorrhoidectomy. SOCIAL HISTORY: He chews tobacco. He does not smoke. He does not drink. FAMILY HISTORY: Negative for coronary artery disease. PHYSICAL EXAMINATION: VITAL SIGNS: Blood pressure of 100/60, pulse of 100. HEENT: PERRL. NECK: Supple. CHEST: Clear. CARDIAC: S1 and S2 are normal without any S3, S4, or murmurs. ABDOMEN: Normal bowel sounds without tenderness. EXTREMITIES: Revealed no clubbing, cyanosis, or edema. NEUROLOGIC: Grossly intact. LABORATORY DATA: CBC is unremarkable. Sodium 136, potassium 4.4, chloride 108, carbon dioxide 19, BUN 10, and creatinine 1.07, glucose 193. Troponin I 0.533, CK-MB 6.6. IMPRESSION: 1. Inferior ST-elevation myocardial infarction. Clinically, appears to have reperfused with improvement in his pain as well as ST segments returning to baseline inferiorly. 2. History of three stent placements, the first in 1997 and the other two at [facility]. 3. Diabetes. 4. Tobacco chewer. 5. Muscle aches with statins. 6. Hypothyroidism. 7. History of gastrointestinal bleeding, probably due to diverticular disease in March 2019. PLAN: The situation was discussed with the patient. It was recommended he undergo emergent catheterization. Risks were discussed including , myocardial infarction, dye reaction, vascular injury, CVA, transfusion, limb loss, renal loss, etc. Risks of intervention, PTCA, and stent placement were discussed including , myocardial infarction, emergent CABG, restenosis, stent thrombosis, vessel perforation, etc. He agrees to proceed. Job ID: [id number] MTDD
[2019-09-11] MEDS ORDERED: Phenylephrine HCL 10 MG/ML VIAL ONE (12:01)
[2019-09-11] MEDS ORDERED: DOPamine 400 MG/D5W 250 ML 250 ML IVPB PRN (13:38)
[2019-09-11] MEDS ORDERED: Nitroglycerin 50 MG/250 ML BOT 250 ML IVPB PRN (13:38)
[2019-09-11] MEDS ORDERED: Promethazine HCl 25 MG/ML VIAL IM PRN (13:38)
[2019-09-11] MEDS ORDERED: hydrALAZINE 20 MG/ML VIAL SLOW IVP PRN (13:38)
[2019-09-11] MEDS ORDERED: Norepinephrine 8 MG/0.9% NS 250 ML IVPB PRN (13:38)
[2019-09-11] MEDS ORDERED: Bisacodyl 10 MG SUPP PR PRN (13:38)
[2019-09-11] MEDS ORDERED: Mag-Al 1200 mg/1200 mg/30 ML UDCUP PO PRN (13:38)
[2019-09-11] MEDS ORDERED: Morphine 2 MG/ML SYRINGE SLOW IVP PRN (13:38)
[2019-09-11] MEDS ORDERED: Bisacodyl 5 MG TAB PO PRN (13:38)
[2019-09-11] MEDS ORDERED: Fentanyl 100 MCG/2 ML VIAL SLOW IVP PRN ×2 (13:38)
[2019-09-11] MEDS ORDERED: Hetastarch 6% 500 ML 500 ML IVPB PRN (13:38)
[2019-09-11] MEDS ORDERED: Acetaminophen 325 MG TAB PO PRN (13:38)
[2019-09-11] MEDS ORDERED: Guaifenesin DM 100-10/5 ML UDCUP PO PRN (13:38)
[2019-09-11] MEDS ORDERED: traMADol HCl 50 MG TAB PO PRN (13:41)
[2019-09-11] MEDS ORDERED: D5 1/2 NS w/20 mEq KCL 1,000 ML IV SCH (13:45)
[2019-09-11 14:05] LABS: Actual Bicarbonate (HCO3a) 20.6 mEq/L (22-28); CO2 Tension 40.3 mmHg (35.0-45.0); Calcium, Ionized 1.09 mmol/L (1.12-1.30); Carboxyhemoglobin (COHb) 1.1 gm% (0.0-3.0); Hemoglobin (Hb) 12.4 g/dL (14.0-18.0); O2 Tension (PaO2) 96.2 mmHg (> 70.0); pH, Arterial 7.33 (7.35-7.45)
[2019-09-11 14:06] VITALS: BMI 31.3
[2019-09-11 14:06] LABS: ALV-art Gradient 281.225 (0-20); Puncture Site ALINE
[2019-09-11 14:14] LABS: #Eosinphils 0.1 thou/uL (0.0-0.7); #Lymphocytes 2.2 thou/uL (1.20-3.40); #Monocytes 0.4 thou/uL (0.11-0.59); #Neutrophils 8.2 thou/uL (1.40-6.50); %Basophils 0.1 % (0.0-1.0); %Eosinophils 0.7 % (0.0-10.0); %Lymphocytes 19.9 % (21.0-51.0); %Monocytes 3.2 % (0.0-10.0); Hemoglobin 12.5 g/dL (14.0-18.0); Mean Corpuscular Hemoglobin 32.2 pg (27.0-31.0); Mean Corpuscular Volume 89.4 fL (78.0-98.0); Mean Platelet Volume 6.4 fL (7.4-10.4); Platelet Count 199 thou/uL (130-400); Red Blood Cell (RBC) Count 3.88 mill/uL (4.70-6.10); White Blood Cell (WBC) Count 10.8 thou/uL (4.8-10.8)
[2019-09-11] MEDS ORDERED: Dextrose 5% in Water 1,000 ML IV PRN ×2 (14:15→14:22)
[2019-09-11] MEDS ORDERED: Insulin Regular 300 UNITS/3 ML VIAL SC PRN ×2 (14:15→14:22)
[2019-09-11] MEDS ORDERED: Magnesium 2 GM/50 ML 2 GM in Premix Bag 1 BAG IVPB SCH (14:15)
[2019-09-11] MEDS ORDERED: Dextrose 50% Abboject 50 ML SYRINGE SLOW IVP PRN ×2 (14:15→14:22)
[2019-09-11 14:21] LABS: INR-International Normal Ratio 1.3; PTT 29.4 SEC (22.9-36.1); Prothrombin Time 15.7 SEC (12.0-14.7)
[2019-09-11] MEDS ORDERED: HUMULIN R 100 UNITS in Sodium Chloride 0.9% 100 ML IVPB SCH (14:22)
[2019-09-11 14:30] LABS: Anion Gap 16 mmol/L (10-20); BUN (Urea Nitrogen) 9 mg/dL (8.4-25.7); Calc. Creatinine Clearance 105 mL/min (70-130); Carbon Dioxide 19 mmol/L (23-31); Chloride 111 mmol/L (98-107); Estimated GFR-MDRD 86; Glucose 186 mg/dL (83-110); Potassium 4.5 mmol/L (3.5-5.1); Sodium 141 mmol/L (136-145)
--- NOTE | 2019-09-11 14:34 | RAD ---
RADIOGRAPH CHEST 1 VIEW: Supine DATE: 09/11/2019 HISTORY: 74-year-old male status post open heart surgery. COMPARISON: 04/04/2019 FINDINGS: There is no airspace density or pulmonary edema. The lateral costophrenic angles are sharp. There is a new right subclavian central venous catheter with distal tip difficult to visualize because of overlying multiple EKG wires. New sternotomy wires. New endotracheal tube distal tip 5.57 m superior to kelsie. New midline and left basilar chest tubes. No cardiomegaly. No pulmonary edema. Supine positioning makes this study insensitive for the detection of pneumothorax. IMPRESSION: 1. Very recently status post open heart surgery with life support lines as mentioned above. 2. No other acute cardiopulmonary findings.
[2019-09-11] MEDS: Ondansetron PF 4 MG/2 ML Vial IVP PRN (14:35)
[2019-09-11] MEDS: Sodium Chloride 0.9% 1,000 ML IV SCH ×2 (15:22→16:34)
[2019-09-11] MEDS: Ketorolac Tromethamine 30 MG/ML VIAL IVP SCH (16:36)
[2019-09-11] MEDS: CEFAZOLIN 2 GM in Premix Bag 1 BAG IVPB SCH (16:37)
--- NOTE | 2019-09-11 16:50 | OP ---
DATE OF PROCEDURE: 09/11/2019 PREOPERATIVE DIAGNOSIS: Coronary artery disease/status post ST-elevation myocardial infarction/hypertension/dyslipidemia. POSTOPERATIVE DIAGNOSIS: Coronary artery disease/status post ST-elevation myocardial infarction/hypertension/dyslipidemia. PROCEDURES PERFORMED: Urgent Coronary artery bypass grafting x3; 1. Left internal mammary artery to distal diffusely diseased, heavily calcified LAD-good conduit and small target. 2. Reverse saphenous vein to 1.5 mm diffusely diseased diagonal. 3. Reverse saphenous vein to 1.5 mm diffusely diseased, heavily calcified posterolateral branch. TELEPHONE OPERATORS SUPERVISOR SURGEON: Dr. Markell Barragan. ANESTHESIA: General endotracheal-Dr. Tayla Triana. PUMP TIME: 65 minutes. CROSS-CLAMP TIME: 33 minutes. LOW CORE TEMPERATURE: 34 degrees Celsius. TACTICAL AIR DEFENSE CONTROLLER: Sheldon Shaw. DRAINS: 24-[place] chest tubes x2. DRIPS: None. TRANSFUSIONS: Two platelet packs and 4 units FFP. DESCRIPTION OF PROCEDURE: After consent was obtained, the patient was brought to the operating room and placed in supine position on the operating room table. Appropriate central line was placed and general endotracheal anesthesia was induced. Chest and legs were prepped and draped in usual sterile fashion. Greater saphenous vein was harvested from the left lower extremity utilizing an endoscopic technique. Wounds were irrigated and closed in layers. Median sternotomy was performed. Left internal mammary artery was harvested as a pedicle graft. The patient was systemically heparinized. Distal pedicle was divided and infused with fibrin. There was significant bleeding from the mammary bed. At this point, we ordered FFP and platelets to be given after we came off pump. Thymic fat and pericardium were divided with electrocautery. Pericardial stay sutures were placed. At this point, the patient became very bradycardic and eventually dropped his blood pressure. The aortic and atrial cannulas were rapidly placed and after adequate heparinization, the patient was placed on cardiopulmonary bypass. Distal targets were marked. Aortic cross-clamp was applied and antegrade sanguinous cardioplegic arrest was obtained. 1 L of antegrade cold [place] cardioplegia was given. Topical cold solution was used. Reverse saphenous vein was anastomosed to the posterolateral branch in an end-to-side fashion with running 7-0 Prolene suture. Anastomosis was tested and was hemostatic. Reverse saphenous vein was anastomosed to diagonal in end-to-side fashion with running 7-0 Prolene suture. Anastomosis was tested and was hemostatic. The mammary artery was brought through the window in the pericardium and anastomosed to the distal LAD in an end-to- side fashion with running 7-0 Prolene suture. On release of mammary clamps, good hooding anastomosis and good distal flow. Pedicle was secured with interrupted 6-0 Prolene suture. Cross-clamp was removed and partial occluding clamp placed. Saphenous veins were anastomosed to individual puncture sites with running 6-0 Prolene suture. Partial occluding clamp was removed and graft was deaired. Anastomoses were inspected for hemostasis, which was good. The patient was warmed and weaned from cardiopulmonary bypass. After resumption of sinus rhythm, good hemodynamics, temperature greater than 36.5, bypass was discontinued. Transfusion was given. 24-[place] chest tubes were placed in mediastinum x2. Decannulation was performed and pursestring suture secured. Protamine was administered. After adequate hemostasis has been obtained, sternum was treated with vancomycin paste and closed with #7 wire. Sternum was treated with platelet rich plasma and wire was twisted. Peristernal block was performed with 0.5% Marcaine, mixed with Decadron. The wounds were copiously irrigated and treated with platelet-poor plasma and closed in multiple layers. Needle, sponge, and instrument counts were all reported as correct at the end of the procedure. The patient tolerated the procedure well, was transferred to the intensive care unit in stable, critical condition. Job ID: [id number] MTDD
[2019-09-11] MEDS ORDERED: Sodium Bicarb 50 MEQ/50 ML VIAL ONE (16:58)
[2019-09-11] MEDS ORDERED: Aminocaproic Acid 5 GM/20 ML VIAL ONE (16:58)
[2019-09-11] MEDS ORDERED: Mannitol 12.5 GM/50 ML ONE (16:58)
[2019-09-11] MEDS ORDERED: Potassium Chloride 60 MEQ/30 ML VIAL ONE (16:58)
[2019-09-11] MEDS ORDERED: DOPamine 400 MG/10 ML VIAL ONE (16:58)
[2019-09-11] MEDS ORDERED: Vecuronium 10 MG VIAL ONE (16:58)
[2019-09-11] MEDS ORDERED: Thrombin 5000 UNITS/5 ML VIAL ONE (16:58)
[2019-09-11] MEDS ORDERED: Papaverine 60 MG/2 ML VIAL ONE (16:58)
[2019-09-11] MEDS ORDERED: Nitroglycerin 50 MG/250 ML BOT ONE (16:58)
[2019-09-11] MEDS ORDERED: Heparin 5,000 UNITS/ML VIAL ONE (16:58)
[2019-09-11] MEDS ORDERED: Protamine Sulfate 250 MG/25 ML VIAL ONE (16:58)
[2019-09-11] MEDS ORDERED: Magnesium 5 GM/10 ML VIAL ONE (16:58)
[2019-09-11] MEDS ORDERED: Heparin 30,000 units/30 ml VIAL ONE (16:58)
[2019-09-11] MEDS ORDERED: Calcium Chloride 1 GM/10 ML Abboject SYRINGE ONE (16:58)
[2019-09-11] MEDS ORDERED: Lidocaine 2% PF 100 mg/5 ml Syringe ONE (16:58)
[2019-09-11] MEDS ORDERED: Cardioplegic Soln 1,000 ML BAG ONE (16:58)
[2019-09-11 17:06] LABS: Actual Bicarbonate (HCO3a) 18.5 mEq/L (22-28); Base Excess (BEa) -6.4 mEq/L (-2.0 to +3.0); CO2 Tension 35.3 mmHg (35.0-45.0); Calcium, Ionized 1.09 mmol/L (1.12-1.30); Carboxyhemoglobin (COHb) 1.5 gm% (0.0-3.0); Hemoglobin (Hb) 15.3 g/dL (14.0-18.0); O2 Tension (PaO2) 107.6 mmHg (> 70.0); Potassium - ABG Lab 4.17 mmol/L (3.70-5.30); pH, Arterial 7.34 (7.35-7.45)
[2019-09-11 17:08] LABS: ALV-art Gradient 133.475 (0-20); Puncture Site ALINE
[2019-09-11 18:38] LABS: Troponin I 45.014 ng/mL (< 0.028)
[2019-09-11 20:04] LABS: Hemoglobin 13.5 g/dL (14.0-18.0)
[2019-09-11 20:18] LABS: Potassium 4.2 mmol/L (3.5-5.1)
[2019-09-11] MEDS ORDERED: Famotidine/PF 20 mg/2ml Vial SLOW IVP SCH (21:00)
[2019-09-11] MEDS: Acetaminophen/Codeine 30-300mg Tablet PO PRN (21:35)
[2019-09-12] MEDS: Ketorolac Tromethamine 30 MG/ML VIAL IVP SCH ×5 (00:14→23:01)
[2019-09-12] MEDS: CEFAZOLIN 2 GM in Premix Bag 1 BAG IVPB SCH ×2 (00:15→08:36)
[2019-09-12] MEDS: Sodium Chloride 0.9% 1,000 ML IV SCH (00:22)
--- NOTE | 2019-09-12 01:12 | CON ---
DATE OF CONSULTATION: 09/11/2019 HISTORY OF PRESENT ILLNESS: Mr. Gordon is a gentleman, who has undergone coronary artery bypass grafting. Apparently as the case was starting, he had a sinus arrest. He was quickly resuscitated successfully, undergone the surgery, was transferred back to the critical care unit, intubated. His temporary pacing wires are in place. According to my discussion with Anesthesia, Dr. Triana, he was having bradycardia and tachycardia intermittently leading up to the case and it was felt that perhaps his sinus node was ischemic. PAST MEDICAL HISTORY: Remarkable for: 1. Diabetes. 2. History of statin intolerance. 3. History of diverticular bleed. 4. Hypothyroidism, on replacement. 5. History of back surgery. 6. History of coronary stenting in the past in 1997 and then 2 more after the year 1999. SOCIAL HISTORY: Apparently, he is a nonsmoker and nondrinker. FAMILY HISTORY: Negative for vascular disease. REVIEW OF SYSTEMS: 10 point review of systems completed, not obtainable. PHYSICAL EXAMINATION: GENERAL: He is intubated and in no distress. VITAL SIGNS: Heart rate 63, respiratory rate 16, oximetry 98, blood pressure 93 /54. HEENT: Pupils are equal. Sclerae anicteric. NECK: Without lymphadenopathy. LUNGS: Clear anteriorly. HEART: Regular rhythm. Chest tubes are in place. Pacing wires are in place. ABDOMEN: Soft and nontender. EXTREMITIES: Without clubbing, cyanosis, or edema. DIAGNOSTIC STUDIES: Chest radiograph shows no infiltrates, no pneumothorax. LABORATORY DATA: White count 10.8, hemoglobin 12.5, platelets 199. Sodium 141, potassium 4.5, chloride 111, bicarb 19, BUN 9, creatinine 0.86. IMPRESSION: 1. Status post coronary artery bypass grafting, clinically stable. 2. Status post transient sinus arrest with temporary pacing wires in place. Hopefully, now that he has been revascularized, this will not be an issue. We will follow with the other physicians while he is in the ICU. TIME SPENT: This is a 70 minute consult, with greater than 50% of the time spent on the unit coordinating care. Job ID: [id number] [facility]
[2019-09-12] MEDS ORDERED: Norepinephrine 8 MG in Dextrose 5% in Water 242 ML IVPB PRN (02:06)
[2019-09-12] MEDS: Acetaminophen/Codeine 30-300mg Tablet PO PRN (02:07)
[2019-09-12 04:29] LABS: #Lymphocytes 1.5 thou/uL (1.20-3.40); #Monocytes 0.8 thou/uL (0.11-0.59); #Neutrophils 8.3 thou/uL (1.40-6.50); %Basophils 0.3 % (0.0-1.0); %Lymphocytes 14.3 % (21.0-51.0); %Monocytes 7.6 % (0.0-10.0); %Neutrophils 77.8 % (42.0-75.0); Hemoglobin 11.4 g/dL (14.0-18.0); Mean Corpuscular HGB CONC 35.1 g/dL (32.0-36.0); Mean Corpuscular Hemoglobin 31.8 pg (27.0-31.0); Mean Corpuscular Volume 90.5 fL (78.0-98.0); Mean Platelet Volume 6.7 fL (7.4-10.4); Platelet Count 187 thou/uL (130-400); RBC Distribution Width 13.2 % (11.5-14.5); Red Blood Cell (RBC) Count 3.59 mill/uL (4.70-6.10); White Blood Cell (WBC) Count 10.7 thou/uL (4.8-10.8)
[2019-09-12 04:46] LABS: Anion Gap 13 mmol/L (10-20); BUN (Urea Nitrogen) 9 mg/dL (8.4-25.7); Calc. Creatinine Clearance 93 mL/min (70-130); Calcium 7.5 mg/dL (7.8-10.44); Carbon Dioxide 21 mmol/L (23-31); Chloride 109 mmol/L (98-107); Estimated GFR-MDRD 75; Glucose 142 mg/dL (83-110); Sodium 139 mmol/L (136-145)
[2019-09-12] MEDS ORDERED: Guaifenesin DM 100-10/5 ML UDCUP PO PRN (07:42)
[2019-09-12] MEDS ORDERED: Mineral Oil ENEMA PR PRN (07:42)
[2019-09-12] MEDS ORDERED: Bisacodyl 5 MG TAB PO PRN (07:42)
[2019-09-12] MEDS ORDERED: diphenhydrAMINE 25 MG CAP PO PRN (07:42)
[2019-09-12] MEDS ORDERED: Bisacodyl 10 MG SUPP PR PRN (07:42)
[2019-09-12] MEDS ORDERED: Artificial Tears 18 DROP/0.9 ML EA EYE PRN (07:42)
[2019-09-12] MEDS ORDERED: Mag-Al 1200 mg/1200 mg/30 ML UDCUP PO PRN (07:42)
[2019-09-12] MEDS ORDERED: Zolpidem Tartrate 5 MG TAB PO PRN (07:42)
[2019-09-12] MEDS ORDERED: Nitroglycerin 0.4 MG TAB (25 Tab Bottle) SL PRN (07:42)
[2019-09-12] MEDS ORDERED: Milk Of Magnesia 30 ML UDCUP PO PRN (07:42)
[2019-09-12] MEDS ORDERED: Dextrose 50% Abboject 50 ML SYRINGE SLOW IVP PRN (07:56)
[2019-09-12] MEDS ORDERED: Dextrose 5% in Water 1,000 ML IV PRN (07:56)
--- NOTE | 2019-09-12 07:56 | RAD ---
PORTABLE CHEST: Date: 09/12/19 HISTORY: Postop sternotomy. CCU follow-up. COMPARISON: 09/11/19. FINDINGS/IMPRESSION: Postop sternotomy change. Central line overlies the SVC. Small effusions and evidence of mild bibasil ar atelectasis. Mild vascular engorgement. No acute change from yesterday. POS: [facility]
[2019-09-12] MEDS: Ondansetron PF 4 MG/2 ML Vial IVP PRN (08:36)
[2019-09-12] MEDS: Aspirin 325 mg Enteric Coated Tablet PO SCH (08:36)
[2019-09-12] MEDS ORDERED: FLU VACC TS2019-20(65YR UP)/PF 180 MCG/0.5 ML SYRINGE IM ONE (09:00)
[2019-09-12] MEDS ORDERED: Prevnar 13-Val Conj/PF 0.5 ML SYRINGE IM ONE (09:00)
[2019-09-12] MEDS: traMADol HCl 50 MG TAB PO PRN ×2 (09:00→13:55)
[2019-09-12] MEDS ORDERED: Aspirin 325 MG TAB PO SCH (09:00)
[2019-09-12] MEDS: Magnesium 2 GM/50 ML 2 GM in Premix Bag 1 BAG IVPB SCH (09:10)
[2019-09-12] MEDS: Insulin Regular 300 UNITS/3 ML VIAL SC PRN ×3 (11:55→20:33)
[2019-09-12 19:43] LABS: Actual Bicarbonate (HCO3a) 18.3 mEq/L (22-28); Base Excess (BEa) -5.7 mEq/L (-2.0 to +3.0); Calcium, Ionized 1.08 mmol/L (1.12-1.30); Carboxyhemoglobin (COHb) 1.5 gm% (0.0-3.0); Hemoglobin (Hb) 12.1 g/dL (14.0-18.0); Potassium - ABG Lab 3.96 mmol/L (3.70-5.30); pH, Arterial 7.39 (7.35-7.45)
[2019-09-12 19:45] LABS: O2 Tension (PaO2) 51.9 mmHg (> 70.0)
--- NOTE | 2019-09-12 19:50 | RAD ---
Frontal view chest COMPARISON: Earlier same day CLINICAL HISTORY: AMS, hypoxia FINDINGS: Development of patchy right perihilar opacity. There is interstitial and alveolar opacity o f the mid to lower left lung. Bilateral pleural fluid remains. There is enlargement of cardiac silhouette and evidence of vascular congestion. Right subclavian venous catheter remains in place. Ev idence of prior sternotomy. IMPRESSION: Increasing edema. Transcribed Date/Time: 09/12/2019 8:12 PM
[2019-09-12] MEDS ORDERED: Iopamidol 370 76% 50 ML VIAL FS ONE (20:12)
[2019-09-12] MEDS ORDERED: Iopamidol 370 76% 100 ML VIAL ONE (20:12)
[2019-09-12] MEDS ORDERED: Furosemide 40 MG/4 ML VIAL SLOW IVP SCH (20:15)
[2019-09-12] MEDS ORDERED: [UNRECOGNIZED DRUG - REMARK] FS SCH (20:30)
[2019-09-12] MEDS: Gabapentin 300 MG CAP PO SCH ×2 (20:33→20:44)
[2019-09-12] MEDS: Insulin Glargine 20 UNITS in Pre-Filled Syringe 1 EACH SC SCH (20:34)
[2019-09-12] MEDS ORDERED: Non-Formulary Item 1 EACH (Insulin Degludec [Tresiba] 20 UNIT) SQ SCH (21:00)
[2019-09-12] MEDS: Ziprasidone 20 MG VIAL IM PRN ×2 (21:08→22:55)
[2019-09-12] MEDS: Nicotine 21 MG PATCH TOP SCH (23:03)
[2019-09-13] MEDS ORDERED: Sterile Water 10 ML VIAL FS PRN (00:08)
[2019-09-13] MEDS ORDERED: Ziprasidone 20 MG VIAL IM SCH (00:15)
[2019-09-13] MEDS ORDERED: Haloperidol Lactate 5 MG/ML VIAL IM SCH (00:15)
[2019-09-13] MEDS: Ziprasidone 20 MG VIAL IM PRN (02:20)
[2019-09-13 04:43] LABS: #Eosinphils 0.1 thou/uL (0.0-0.7); #Lymphocytes 1.6 thou/uL (1.20-3.40); #Monocytes 0.4 thou/uL (0.11-0.59); #Neutrophils 8.2 thou/uL (1.40-6.50); %Basophils 0.4 % (0.0-1.0); %Eosinophils 0.7 % (0.0-10.0); %Lymphocytes 15.3 % (21.0-51.0); %Monocytes 3.9 % (0.0-10.0); %Neutrophils 79.7 % (42.0-75.0); Mean Corpuscular HGB CONC 34.8 g/dL (32.0-36.0); Mean Corpuscular Hemoglobin 31.8 pg (27.0-31.0); Mean Corpuscular Volume 91.2 fL (78.0-98.0); Mean Platelet Volume 6.8 fL (7.4-10.4); Platelet Count 153 thou/uL (130-400); RBC Distribution Width 13.4 % (11.5-14.5); Red Blood Cell (RBC) Count 3.79 mill/uL (4.70-6.10); White Blood Cell (WBC) Count 10.3 thou/uL (4.8-10.8)
[2019-09-13 05:01] LABS: Anion Gap 13 mmol/L (10-20); BUN (Urea Nitrogen) 12 mg/dL (8.4-25.7); Calc. Creatinine Clearance 82 mL/min (70-130); Calcium 7.8 mg/dL (7.8-10.44); Carbon Dioxide 23 mmol/L (23-31); Chloride 107 mmol/L (98-107); Estimated GFR-MDRD 64; Glucose 194 mg/dL (83-110); Sodium 139 mmol/L (136-145)
[2019-09-13] MEDS: Ketorolac Tromethamine 30 MG/ML VIAL IVP SCH ×4 (05:18→23:23)
[2019-09-13] MEDS: Potassium Chloride 20 MEQ/100 ML PREMIX BAG IVPB PRN (05:19)
[2019-09-13] MEDS: Levothyroxine 150 MCG TAB PO SCH (05:20)
[2019-09-13] MEDS: Insulin Regular 300 UNITS/3 ML VIAL SC PRN ×3 (05:57→15:54)
[2019-09-13] MEDS ORDERED: Metolazone 5 MG TAB PO SCH (06:45)
[2019-09-13] MEDS ORDERED: Furosemide 40 MG/4 ML VIAL SLOW IVP SCH (07:00)
--- NOTE | 2019-09-13 08:12 | RAD ---
PORTABLE CHEST: HISTORY: Postop sternotomy. COMPARISON: 09/12/2019. FINDINGS: Cardiomegaly with postop sternotomy change. There are bilateral perihilar infiltrates with vascular congestion. The right perihilar infiltrates are more pronounced. Findings suggest edema. Small eff usions are suspected. Similar findings were noted yesterday. POS: OFF
[2019-09-13] MEDS: Aspirin 325 mg Enteric Coated Tablet PO SCH (08:17)
[2019-09-13] MEDS: Ubidecarenone 50 MG CAP PO SCH (08:17)
[2019-09-13] MEDS: Magnesium 2 GM/50 ML 2 GM in Premix Bag 1 BAG IVPB SCH (08:30)
--- NOTE | 2019-09-13 09:40 | PRG ---
DATE OF SERVICE: 09/12/2019 SUBJECTIVE: Toni Gordon is examined, sitting up in a chair. His hemodynamics have been stable. He had minimal discomfort or complaints of pain. OBJECTIVE: HEAD/NECK: Unremarkable. LUNGS: Clear. HEART: Regular rhythm. ABDOMEN: Soft and nontender. EXTREMITIES: Without edema. IMPRESSION: Status post coronary artery bypass grafting, clinically doing well. We will follow until he transfers out of the Critical Care Unit. Job ID: [id number] MTDD
[2019-09-13] MEDS: traMADol HCl 50 MG TAB PO PRN (10:55)
[2019-09-13] MEDS: Furosemide 40 MG/4 ML VIAL SLOW IVP SCH (13:36)
[2019-09-13] MEDS ORDERED: Haloperidol Lactate 5 MG/ML VIAL IM PRN (15:00)
--- NOTE | 2019-09-13 15:10 | PRG ---
DATE OF SERVICE: 09/13/2019 SUBJECTIVE: Toni Gordon apparently became very confused and combative last night. There is no family in the room to inquire as to whether or not this happens at home. He is better today. He does not remember last night. OBJECTIVE: VITAL SIGNS: Blood pressure is 100/54, heart rate is 105, respiratory rate is 18, oximetry is 98%. LUNGS: Clear. HEART: Regular rhythm. ABDOMEN: Soft. LABORATORY DATA: White count 10.3, hemoglobin 12, and platelets 153,000. Electrolytes are normal today. Glucose 194. IMPRESSION: 1. Status post coronary artery bypass grafting. 2. Nocturnal encephalopathy that is improved. May do better with a dose of Seroquel at bedtime. He probably should not get Ambien at bedtime. Mera Ugalde is fine. Job ID: [id number]
[2019-09-13] MEDS ORDERED: Gabapentin 300 MG CAP ONE ×2 (17:29→17:30)
[2019-09-13] MEDS: Gabapentin 300 MG CAP PO SCH (17:33)
[2019-09-13] MEDS: Insulin Glargine 20 UNITS in Pre-Filled Syringe 1 EACH SC SCH (20:08)
[2019-09-13] MEDS: Nicotine 21 MG PATCH TOP SCH (20:08)
[2019-09-14 04:31] LABS: #Eosinphils 0.3 thou/uL (0.0-0.7); #Lymphocytes 1.6 thou/uL (1.20-3.40); #Monocytes 0.4 thou/uL (0.11-0.59); #Neutrophils 5.5 thou/uL (1.40-6.50); %Basophils 0.2 % (0.0-1.0); %Eosinophils 3.3 % (0.0-10.0); %Lymphocytes 20.8 % (21.0-51.0); %Monocytes 4.7 % (0.0-10.0); %Neutrophils 70.9 % (42.0-75.0); Hemoglobin 11.8 g/dL (14.0-18.0); Mean Corpuscular HGB CONC 34.4 g/dL (32.0-36.0); Mean Corpuscular Hemoglobin 31.4 pg (27.0-31.0); Mean Corpuscular Volume 91.3 fL (78.0-98.0); Mean Platelet Volume 6.9 fL (7.4-10.4); Platelet Count 153 thou/uL (130-400); RBC Distribution Width 13.1 % (11.5-14.5); Red Blood Cell (RBC) Count 3.75 mill/uL (4.70-6.10); White Blood Cell (WBC) Count 7.7 thou/uL (4.8-10.8)
[2019-09-14 04:44] LABS: Anion Gap 11 mmol/L (10-20); BUN (Urea Nitrogen) 14 mg/dL (8.4-25.7); Calc. Creatinine Clearance 93 mL/min (70-130); Calcium 8.3 mg/dL (7.8-10.44); Carbon Dioxide 26 mmol/L (23-31); Chloride 103 mmol/L (98-107); Estimated GFR-MDRD 77; Glucose 148 mg/dL (83-110); Potassium 3.4 mmol/L (3.5-5.1); Sodium 137 mmol/L (136-145)
[2019-09-14] MEDS: Ketorolac Tromethamine 30 MG/ML VIAL IVP SCH ×3 (06:23→17:05)
[2019-09-14] MEDS: Potassium Chloride 20 MEQ/100 ML PREMIX BAG IVPB PRN (06:23)
[2019-09-14] MEDS: Levothyroxine 150 MCG TAB PO SCH (06:23)
[2019-09-14] MEDS: Furosemide 40 MG/4 ML VIAL SLOW IVP SCH ×2 (06:24→13:47)
[2019-09-14] MEDS ORDERED: diphenhydrAMINE 25 MG CAP PO PRN (07:13)
[2019-09-14] MEDS ORDERED: Bisacodyl 10 MG SUPP PR PRN (07:13)
[2019-09-14] MEDS ORDERED: Nitroglycerin 0.4 MG TAB (25 Tab Bottle) SL PRN (07:13)
[2019-09-14] MEDS ORDERED: Zolpidem Tartrate 5 MG TAB PO PRN (07:13)
[2019-09-14] MEDS ORDERED: Bisacodyl 5 MG TAB PO PRN (07:13)
[2019-09-14] MEDS ORDERED: Guaifenesin DM 100-10/5 ML UDCUP PO PRN (07:13)
[2019-09-14] MEDS ORDERED: Artificial Tears 18 DROP/0.9 ML EA EYE PRN (07:13)
[2019-09-14] MEDS ORDERED: Mag-Al 1200 mg/1200 mg/30 ML UDCUP PO PRN (07:13)
[2019-09-14] MEDS ORDERED: Mineral Oil ENEMA PR PRN (07:13)
[2019-09-14] MEDS ORDERED: Metolazone 5 MG TAB PO SCH (07:15)
[2019-09-14] MEDS: Aspirin 325 mg Enteric Coated Tablet PO SCH (07:53)
[2019-09-14] MEDS: Carvedilol 3.125 MG TAB PO SCH ×2 (07:53→21:27)
[2019-09-14] MEDS: Potassium Chloride 20 MEQ TAB PO SCH ×2 (07:53→17:05)
[2019-09-14] MEDS: Ubidecarenone 50 MG CAP PO SCH (07:54)
--- NOTE | 2019-09-14 08:02 | RAD ---
CHEST 1 VIEW: HISTORY: CABG. COMPARISON: Radiograph from prior day. FINDINGS: The central venous catheter tip is in good position at the right atrium. Heart size continues to be enlarged. Mild interval improvement in aeration of the lungs as well as smaller pleural effusion. IMPRESSION: Slight decreased pleural effusions and improved lung aeration. POS: CET
--- NOTE | 2019-09-14 09:40 | PRG ---
DATE OF SERVICE: 09/14/2019 SUBJECTIVE: Toni Gordon became confused again last night, but it was not as significant as the night before. He just took off his gown when standing next to the bed. He did get back in bed and cooperate, was more cooperative than the previous night. OBJECTIVE: VITAL SIGNS: Heart rate is 108, respiratory rate is 20, oximetry is 99%, blood pressure is 98/56. LUNGS: Remarkable for crackles at both lung bases. HEART: Regular rate and rhythm. ABDOMEN: Soft and nontender. EXTREMITIES: Without edema or asymmetry. IMAGING STUDIES: Chest radiograph shows atelectasis and small effusions bilaterally. X-ray slightly improved. LABORATORY DATA: White count 7.7, hemoglobin 11.8, platelets 153,000. Sodium 137, potassium 3.4, chloride 103, bicarb 26, BUN 14, creatinine 0.95. IMPRESSION: 1. Status post coronary artery bypass grafting. 2. Nocturnal encephalopathy either related to being in the ICU. Recent coronary artery bypass grafting or early dementia, this is decompensated. He has been fairly functional in the day, but could not remember the day or my name today. PLAN: We will continue with supportive care. If he transfers out of the Critical Care Unit, he probably needs a sitter at night. Job ID: [id number]
[2019-09-14] MEDS: Insulin Regular 300 UNITS/3 ML VIAL SC PRN ×2 (11:00→16:58)
[2019-09-14] MEDS: Gabapentin 300 MG CAP PO SCH (21:27)
[2019-09-14] MEDS: Insulin Glargine 20 UNITS in Pre-Filled Syringe 1 EACH SC SCH (21:27)
[2019-09-14] MEDS: Nicotine 21 MG PATCH TOP SCH (21:34)
[2019-09-15] MEDS: Furosemide 40 MG/4 ML VIAL SLOW IVP SCH ×2 (05:49→13:19)
[2019-09-15] MEDS: Levothyroxine Sodium 88 MCG TAB PO SCH (06:07)
[2019-09-15 07:35] LABS: Anion Gap 14 mmol/L (10-20); BUN (Urea Nitrogen) 22 mg/dL (8.4-25.7); Calc. Creatinine Clearance 86 mL/min (70-130); Calcium 8.8 mg/dL (7.8-10.44); Carbon Dioxide 24 mmol/L (23-31); Chloride 102 mmol/L (98-107); Estimated GFR-MDRD 65; Glucose 155 mg/dL (83-110); Potassium 3.9 mmol/L (3.5-5.1); Sodium 136 mmol/L (136-145)
[2019-09-15] MEDS: Potassium Chloride 20 MEQ TAB PO SCH ×2 (08:05→17:10)
[2019-09-15] MEDS: Aspirin 325 mg Enteric Coated Tablet PO SCH (08:06)
[2019-09-15] MEDS: Ubidecarenone 50 MG CAP PO SCH (08:06)
[2019-09-15] MEDS: Carvedilol 3.125 MG TAB PO SCH ×2 (08:06→20:27)
--- NOTE | 2019-09-15 11:22 | PRG ---
DATE OF SERVICE: 09/15/2019 SUBJECTIVE: This morning, he appears to be in no distress. OBJECTIVE: VITAL SIGNS: Saturations 100% on room air, temperature 97, pulse 104, blood pressure 112/59. CHEST: No wheezing, crackles. CARDIAC: Normal S1, S2. No gallops. ABDOMEN: No masses. ASSESSMENT: 1. Status post coronary artery bypass grafting. 2. Encephalopathy, improved. Continue supportive care. DISPOSITION: As per Cardiology. Job ID: [id number]
[2019-09-15] MEDS: Insulin Regular 300 UNITS/3 ML VIAL SC PRN ×2 (11:28→17:12)
[2019-09-15] MEDS: Gabapentin 300 MG CAP PO SCH (20:27)
[2019-09-15] MEDS: Nicotine 21 MG PATCH TOP SCH (20:29)
[2019-09-15] MEDS: Insulin Glargine 20 UNITS in Pre-Filled Syringe 1 EACH SC SCH (20:32)
[2019-09-16] MEDS: Furosemide 40 MG/4 ML VIAL SLOW IVP SCH (05:57)
[2019-09-16] MEDS: Levothyroxine Sodium 88 MCG TAB PO SCH (05:57)
[2019-09-16] MEDS: Ubidecarenone 50 MG CAP PO SCH (08:41)
[2019-09-16] MEDS: Aspirin 325 mg Enteric Coated Tablet PO SCH (08:42)
[2019-09-16] MEDS: Carvedilol 3.125 MG TAB PO SCH ×2 (08:42→20:53)
[2019-09-16] MEDS: Potassium Chloride 20 MEQ TAB PO SCH ×2 (08:42→17:09)
[2019-09-16] MEDS ORDERED: Metolazone 5 MG TAB PO SCH (11:00)
[2019-09-16] MEDS: Insulin Regular 300 UNITS/3 ML VIAL SC PRN ×2 (12:04→17:11)
[2019-09-16] MEDS: Furosemide 20 MG TAB PO SCH (14:46)
[2019-09-16] MEDS: Gabapentin 300 MG CAP PO SCH (20:53)
[2019-09-16] MEDS: Insulin Glargine 20 UNITS in Pre-Filled Syringe 1 EACH SC SCH (20:54)
[2019-09-16] MEDS: Nicotine 21 MG PATCH TOP SCH (20:57)
[2019-09-17] MEDS: Levothyroxine Sodium 88 MCG TAB PO SCH (05:11)
[2019-09-17 07:41] VITALS: TEMP 98.1
[2019-09-17] MEDS: Aspirin 325 mg Enteric Coated Tablet PO SCH (09:01)
[2019-09-17] MEDS: Furosemide 20 MG TAB PO SCH ×2 (09:01→13:06)
[2019-09-17] MEDS: Potassium Chloride 20 MEQ TAB PO SCH (09:01)
[2019-09-17] MEDS: Ubidecarenone 50 MG CAP PO SCH (09:01)
[2019-09-17] MEDS: Carvedilol 3.125 MG TAB PO SCH (09:01)
[2019-09-17] MEDS: Insulin Regular 300 UNITS/3 ML VIAL SC PRN (11:59)
[2019-09-17 12:04] VITALS: BP 137/64
[2019-09-17] MEDS ORDERED: Furosemide 40 MG TAB ONE (13:14)
[2019-09-17] MEDS ORDERED: Furosemide 20 MG TAB ONE (13:15)
[2019-09-17 14:52] LABS: Analyzer IN Cardio OR; Base Excess (BEa) -5.1 mEq/L (-2.0 to +3.0); CO2 Tension 42.6 mmHg (35.0-45.0); Calcium, Ionized 1.06 mmol/L (1.12-1.30); Carboxyhemoglobin (COHb) 0.5 gm% (0.0-3.0); O2 Tension (PaO2) 145.1 mmHg (> 70.0); Potassium - ABG Lab 4.98 mmol/L (3.70-5.30); pH, Arterial 7.31 (7.35-7.45)
[2019-09-17 14:53] LABS: Actual Bicarbonate (HCO3v) 17 mEq/L (22-28); Analyzer IN Cardio OR; Base Excess -10.5 mEq/L (-2.0 to +3.0); Calcium, Ionized 0.98 mmol/L (1.16-1.32); Chloride (ABG LAB) 103 mmol/L (98-106); Hemoglobin (Hb) 11.9 g/dL (12.6-17.4); Potassium - ABG Lab 5.54 mmol/L (3.70-5.30)
[2019-09-17 14:54] LABS: Actual Bicarbonate (HCO3a) 17.4 mEq/L (22-28); Analyzer IN Cardio OR; Base Excess (BEa) -8.5 mEq/L (-2.0 to +3.0); CO2 Tension 37.9 mmHg (35.0-45.0); Calcium, Ionized 1.05 mmol/L (1.12-1.30); Carboxyhemoglobin (COHb) 0.9 gm% (0.0-3.0); O2 Tension (PaO2) 314.1 mmHg (> 70.0); Potassium - ABG Lab 4.79 mmol/L (3.70-5.30); pH, Arterial 7.28 (7.35-7.45)
[2019-09-17 14:54] LABS: Actual Bicarbonate (HCO3a) 17.2 mEq/L (22-28); Analyzer IN Cardio OR; Base Excess (BEa) -8.8 mEq/L (-2.0 to +3.0); CO2 Tension 37.5 mmHg (35.0-45.0); Calcium, Ionized 1.05 mmol/L (1.12-1.30); Carboxyhemoglobin (COHb) 0.7 gm% (0.0-3.0); Hemoglobin (Hb) 12.1 g/dL (14.0-18.0); O2 Tension (PaO2) 394.5 mmHg (> 70.0); Potassium - ABG Lab 5.81 mmol/L (3.70-5.30); pH, Arterial 7.28 (7.35-7.45)
[2019-09-17 14:55] LABS: Actual Bicarbonate (HCO3a) 21.5 mEq/L (22-28); Analyzer IN Cardio OR; Base Excess (BEa) -4.6 mEq/L (-2.0 to +3.0); CO2 Tension 43.1 mmHg (35.0-45.0); Calcium, Ionized 1.09 mmol/L (1.12-1.30); Carboxyhemoglobin (COHb) 0.9 gm% (0.0-3.0); Hemoglobin (Hb) 15.9 g/dL (14.0-18.0); O2 Tension (PaO2) 382.4 mmHg (> 70.0); Potassium - ABG Lab 4.23 mmol/L (3.70-5.30); pH, Arterial 7.32 (7.35-7.45)
[2019-09-17 14:56] LABS: Actual Bicarbonate (HCO3a) 20.8 mEq/L (22-28); Analyzer IN Cardio OR; Base Excess (BEa) -5.2 mEq/L (-2.0 to +3.0); CO2 Tension 42.1 mmHg (35.0-45.0); Calcium, Ionized 1.04 mmol/L (1.12-1.30); Carboxyhemoglobin (COHb) 0.4 gm% (0.0-3.0); Hemoglobin (Hb) 12.5 g/dL (14.0-18.0); O2 Tension (PaO2) 423.5 mmHg (> 70.0); Potassium - ABG Lab 5.78 mmol/L (3.70-5.30); pH, Arterial 7.31 (7.35-7.45)
[2019-09-17 14:59] LABS: Puncture Site ALINE
[2019-09-17 15:00] LABS: Puncture Site ALINE
[2019-09-17 15:00] LABS: Puncture Site ALINE
[2019-09-17 15:02] LABS: pH (venous) 7.22 (7.32-7.43)
[2019-09-17 15:02] LABS: Puncture Site ALINE
[2019-09-17 15:03] LABS: Puncture Site ALINE
--- NOTE | 2019-09-17 22:45 | EKG ---
Test Reason : POST CABG Blood Pressure : / mmHG Vent. Rate : 096 BPM Atrial Rate : 096 BPM P-R Int : 194 ms QRS Dur : 088 ms QT Int : 378 ms P-R-T Axes : 066 -18 094 degrees QTc Int : 477 ms Normal sinus rhythm Nonspecific ST and T wave abnormality Prolonged QT Abnormal ECG Confirmed by ABEL SEPULVEDA M.D. ([id number]) on 09/17/2019 10:45:39 PM Referred By: Ramos CASTILLO Confirmed By:ABEL SEPULVEDA M.D.
--- NOTE | 2019-09-17 22:55 | EKG ---
Test Reason : Blood Pressure : / mmHG Vent. Rate : 093 BPM Atrial Rate : 093 BPM P-R Int : 196 ms QRS Dur : 082 ms QT Int : 356 ms P-R-T Axes : 045 015 046 degrees QTc Int : 442 ms Normal sinus rhythm Nonspecific ST and T wave abnormality Abnormal ECG When compared with ECG of 11-SEP-2019 14:02, (Unconfirmed) No significant change was found Confirmed by ABEL SEPULVEDA M.D. ([id number]) on 09/17/2019 10:54:54 PM Referred By: ADITYA Confirmed By:ABEL SEPULVEDA M.D.
--- NOTE | 2019-09-18 01:21 | DIS ---
DATE OF ADMISSION: 09/11/2019 DATE OF DISCHARGE: 09/17/2019 DATE OF TRANSFER: 09/17. DIAGNOSES: 1. Coronary artery disease with ST-elevation myocardial infarction. 2. Hypertension. 3. Dyslipidemia. 4. Hypothyroidism. PROCEDURES: 1. Cardiac catheterization. 2. Coronary artery bypass grafting x3 on emergency status -. a. Left internal mammary artery to left anterior descending. b. Reverse saphenous vein to diagonal. c. Reverse saphenous vein to posterolateral. DESCRIPTION OF HOSPITAL STAY: Mr. Gordon presented with ST-elevation myocardial infarction. He underwent emergency catheterization and subsequent coronary artery bypass grafting as above. He has done well postoperatively. He has had no rhythm disturbances. At time of discharge, he is being sent to a long-term facility in [place]. He is ambulatory, tolerating regular diet, having good bowel and bladder function. Incisions are clean and dry without evidence of infection. DISCHARGE MEDICATIONS: 1. Aspirin 325 mg daily. 2. Coreg 3.125 mg daily. 3. CoQ10 200 mg daily. 4. Protonix 40 mg daily. 5. Synthroid 50 mcg daily. 6. Tresiba 20 units q.p.m. 7. Gabapentin 600 mg daily. FOLLOWUP: Followup is with me in 2 weeks. Job ID: [id number]
[2019-09-18] MEDS ORDERED: Lisinopril 2.5 MG TAB PO SCH (09:00)
== END 2019-09-17 14:20 | DRG 234 ==
LOC: ERS 06:43 → CCU 07:00 → 2NO 09-14 14:15
PROVIDERS: ADMIT Internal Medicine Cardiovascular Disease; ATTEND Internal Medicine Cardiovascular Disease
PROC: 02100Z9 Bypass Coronary Artery, One Artery from Left Internal Mammary, Open Approach (ICD-10-PCS; principal; 2019-09-11)
PROC: 021109W Bypass Coronary Artery, Two Arteries from Aorta with Autologous Venous Tissue, Open Approach (ICD-10-PCS; 2019-09-11)
PROC: 06BQ4ZZ Excision of Left Saphenous Vein, Percutaneous Endoscopic Approach (ICD-10-PCS; 2019-09-11)
PROC: 5A1221Z Performance of Cardiac Output, Continuous (ICD-10-PCS; 2019-09-11)
PROC: 4A023N7 Measurement of Cardiac Sampling and Pressure, Left Heart, Percutaneous Approach (ICD-10-PCS; 2019-09-11)
PROC: B2111ZZ Fluoroscopy of Multiple Coronary Arteries using Low Osmolar Contrast (ICD-10-PCS; 2019-09-11)
PROC: B2151ZZ Fluoroscopy of Left Heart using Low Osmolar Contrast (ICD-10-PCS; 2019-09-11)
DX: I21.19 ST elevation (STEMI) myocardial infarction involving other coronary artery of inferior wall (principal); G93.49 Other encephalopathy; J98.11 Atelectasis; J90 Pleural effusion, not elsewhere classified; E03.9 Hypothyroidism, unspecified; F17.220 Nicotine dependence, chewing tobacco, uncomplicated; E11.9 Type 2 diabetes mellitus without complications; I10 Essential (primary) hypertension; E78.5 Hyperlipidemia, unspecified; Z95.5 Presence of coronary angioplasty implant and graft; I25.10 Atherosclerotic heart disease of native coronary artery without angina pectoris
CPT/HCPCS: 36415; 36416; 36430; 71045; 80048; 80053; 80061; 82553; 82805; 84443; 84484; 85025; 85347; 85610; 85730; 86850; 86900; 86901; 93005; 93010; 93306; 93458; 93798; 94002; 94150; 94640; C1769; C1887; J0670; J0690; J1100; J1265; J1630; J1644; J1815; J1885; J1940; J2001; J2150; J2250; J2270; J2370; J2405; J2440; J2720; J3010; J3370; J3475; J3480; J3486; J3490; J7050; J7070; J7620; P9035; P9045; P9059; Q9967; S0017; S0028

== ENCOUNTER 2019-11-30 12:30 | Emergency (ER) | payer MEDICARE, BC ==
[2019-11-30 13:11] LABS: #Basophils 0.1 thou/uL (0.0-0.2); #Eosinphils 0.3 thou/uL (0.0-0.7); #Lymphocytes 2.4 thou/uL (1.20-3.40); #Monocytes 0.5 thou/uL (0.11-0.59); #Neutrophils 4.6 thou/uL (1.40-6.50); %Basophils 0.9 % (0.0-1.0); %Eosinophils 3.6 % (0.0-10.0); %Lymphocytes 30.8 % (21.0-51.0); %Monocytes 6.4 % (0.0-10.0); %Neutrophils 58.3 % (42.0-75.0); Hemoglobin 15.1 g/dL (14.0-18.0); Mean Corpuscular HGB CONC 33.3 g/dL (32.0-36.0); Mean Corpuscular Hemoglobin 28.1 pg (27.0-31.0); Mean Corpuscular Volume 84.5 fL (78.0-98.0); Mean Platelet Volume 6.4 fL (7.4-10.4); Platelet Count 276 thou/uL (130-400); RBC Distribution Width 12.6 % (11.5-14.5); Red Blood Cell (RBC) Count 5.37 mill/uL (4.70-6.10); White Blood Cell (WBC) Count 7.8 thou/uL (4.8-10.8)
[2019-11-30] MEDS ORDERED: Ondansetron PF 4 MG/2 ML Vial ONE (13:14)
[2019-11-30] MEDS ORDERED: Morphine 4 MG/ML VIAL ONE (13:14)
--- NOTE | 2019-11-30 13:14 | RAD ---
XR Chest 1 View Portable HISTORY: Chest pain FINDINGS: There are changes of median sternotomy. The heart size is normal. The lungs are well expand ed without focal areas of consolidation, pneumothorax or pleural effusions. IMPRESSION: No radiographic evidence of acute cardiopulmonary process.
[2019-11-30 13:35] LABS: ALT (SGPT) 11 U/L (8-55); AST (SGOT) 16 U/L (5-34); Alkaline Phosphatase 77 U/L (40-110); Anion Gap 12 mmol/L (10-20); BUN (Urea Nitrogen) 10 mg/dL (8.4-25.7); Bilirubin, Total 0.6 mg/dL (0.2-1.2); CK (CPK) 72 U/L (30-200); Calc. Creatinine Clearance 0 mL/min (70-130); Calcium 9.1 mg/dL (7.8-10.44); Carbon Dioxide 24 mmol/L (23-31); Chloride 107 mmol/L (98-107); Estimated GFR-MDRD 75; Globulin 2.8 g/dL (2.4-3.5); Glucose 107 mg/dL (83-110); Lipase 26 U/L (8-78); Potassium 4.3 mmol/L (3.5-5.1); Protein, Total 6.8 g/dL (5.8-8.1); Sodium 139 mmol/L (136-145)
[2019-11-30] MEDS ORDERED: predniSONE 20 MG TAB ONE (15:27)
[2019-11-30 15:41] LABS: Troponin I Less than 0.010 ng/mL (< 0.028)
== END 2019-11-30 15:59 | disposition home or self-care (01) ==
LOC: ERS 12:30
DX: R07.89 Other chest pain (principal); I25.10 Atherosclerotic heart disease of native coronary artery without angina pectoris; E11.9 Type 2 diabetes mellitus without complications; Z79.899 Other long term (current) drug therapy; Z79.82 Long term (current) use of aspirin; Z79.84 Long term (current) use of oral hypoglycemic drugs
CPT/HCPCS: 36415; 71045; 80053; 82550; 83690; 83880; 84484; 85025; 93005; 94760; 96374; 96375; J2270; J2405; J7512

== ENCOUNTER 2021-02-11 22:11 | Observation (INO) | payer BC ==
[~2021-02-11 22:11] MED LIST: Iopamidol-370 76% 500 ML 1 ML ONE
[2021-02-11 23:18] LABS: ALT (SGPT) 21 U/L (8-55); AST (SGOT) 28 U/L (5-34); Albumin 4.1 g/dL (3.4-4.8); Alkaline Phosphatase 70 U/L (40-110); Anion Gap 17 mmol/L (10-20); BUN (Urea Nitrogen) 21 mg/dL (8.4-25.7); Bilirubin, Total 0.5 mg/dL (0.2-1.2); Calc. Creatinine Clearance 0 mL/min (70-130); Carbon Dioxide 18 mmol/L (23-31); Chloride 108 mmol/L (98-107); Globulin 3.1 g/dL (2.4-3.5); Glucose 301 mg/dL (83-110); Potassium 4.3 mmol/L (3.5-5.1); Protein, Total 7.2 g/dL (5.8-8.1); Sodium 139 mmol/L (136-145)
[2021-02-11 23:30] LABS: Band 9 % (5-11); Eosinophils 1 % (0-10); Hemoglobin 16.1 g/dL (14.0-18.0); Lymphocytes 13 % (21-51); MDiff Complete? YES; Mean Corpuscular HGB CONC 33.7 g/dL (32.0-36.0); Mean Corpuscular Hemoglobin 31.5 pg (27.0-31.0); Mean Corpuscular Volume 93.5 fL (78.0-98.0); Mean Platelet Volume 6.7 fL (7.4-10.4); Monocytes 3 % (0-10); Neutrophil 74 % (42-75); Platelet Count 397 thou/uL (130-400); RBC Distribution Width 11.4 % (11.5-14.5); White Blood Cell (WBC) Count 20.2 thou/uL (4.8-10.8)
[2021-02-12] MEDS ORDERED: diphenhydrAMINE 25 MG CAP ONE ×2 (01:32→01:33)
[2021-02-12] MEDS ORDERED: Ondansetron ODT 4 MG TAB PO PRN (06:07)
[2021-02-12] MEDS ORDERED: Acetaminophen 325 MG TAB PO PRN (06:07)
[2021-02-12] MEDS ORDERED: Ondansetron PF 4 MG/2 ML Vial IVP PRN (06:07)
[2021-02-12 06:42] LABS: #Basophils 0.1 thou/uL (0.0-0.2); #Eosinphils 0.2 thou/uL (0.0-0.7); #Lymphocytes 3.1 thou/uL (1.20-3.40); #Monocytes 0.7 thou/uL (0.11-0.59); #Neutrophils 8.5 thou/uL (1.40-6.50); %Basophils 0.5 % (0.0-1.0); %Eosinophils 1.4 % (0.0-10.0); %Lymphocytes 24.6 % (21.0-51.0); %Monocytes 5.8 % (0.0-10.0); %Neutrophils 67.8 % (42.0-75.0); Hemoglobin 13.2 g/dL (14.0-18.0); Mean Corpuscular Hemoglobin 33.5 pg (27.0-31.0); Mean Corpuscular Volume 93.2 fL (78.0-98.0); Mean Platelet Volume 6.4 fL (7.4-10.4); Platelet Count 319 thou/uL (130-400); RBC Distribution Width 11.3 % (11.5-14.5); Red Blood Cell (RBC) Count 3.94 mill/uL (4.70-6.10); White Blood Cell (WBC) Count 12.5 thou/uL (4.8-10.8)
[2021-02-12] MEDS ORDERED: Loratadine 10 MG TAB PO PRN (10:10)
[2021-02-12] MEDS ORDERED: Sodium Chloride 0.9% 1,000 ML IV SCH (14:45)
[2021-02-12 15:26] LABS: Hemoglobin 13.4 g/dL (14.0-18.0)
[2021-02-12] MEDS ORDERED: Dextrose 50% Abboject 50 ML SYRINGE SLOW IVP PRN (17:21)
[2021-02-12] MEDS ORDERED: Dextrose 5% in Water 1,000 ML IV PRN (17:21)
[2021-02-12] MEDS ORDERED: HumaLOG 300 UNITS/3 ML VIAL SC PRN ×2 (17:21→19:45)
[2021-02-12 18:37] VITALS: BMI 31.7
[2021-02-12 18:38] VITALS: BP 116/63; TEMP 97.9
[2021-02-12] MEDS ORDERED: Gabapentin 300 MG CAP PO SCH (21:00)
== END 2021-02-12 20:05 | disposition left against medical advice (07) ==
LOC: ERS 22:11 → ERHOLD 02-12 01:58 → 2SW 02-12 17:54
PROVIDERS: ADMIT Student in an Organized Health Care Education/Training Program; ATTEND Student in an Organized Health Care Education/Training Program
DX: R55 Syncope and collapse (principal); K92.1 Melena; S06.9X1A Unspecified intracranial injury with loss of consciousness of 30 minutes or less, initial encounter; I25.10 Atherosclerotic heart disease of native coronary artery without angina pectoris; E11.9 Type 2 diabetes mellitus without complications; I50.20 Unspecified systolic (congestive) heart failure; N20.0 Calculus of kidney; J30.2 Other seasonal allergic rhinitis; Z86.010 Personal history of colon polyps; Z79.4 Long term (current) use of insulin; Z79.82 Long term (current) use of aspirin; Z79.899 Other long term (current) drug therapy; Z88.8 Allergy status to other drugs, medicaments and biological substances; Z95.5 Presence of coronary angioplasty implant and graft; W19.XXXA Unspecified fall, initial encounter
CPT/HCPCS: 36415; 36416; 70450; 74177; 80053; 82010; 84484; 85025; 93005; G0378; Q0163; Q9967

== ENCOUNTER 2025-09-20 07:01 | Inpatient (IN) | payer MEDICARE, BC ==
[2025-09-20] MEDS ORDERED: Dextrose 50% Abboject 50 ML SYRINGE SLOW IVP PRN (10:41)
[2025-09-20] MEDS ORDERED: Glucagon 1 MG/ML KIT IM PRN (10:41)
[2025-09-20] MEDS ORDERED: Ondansetron PF 4 MG/2 ML Vial IVP PRN (10:41)
[2025-09-20] MEDS ORDERED: Calcium Carbonate 500 MG ChewTAB PO PRN (10:41)
[2025-09-20] MEDS: Ketorolac Tromethamine 30 MG (1 mL) VIAL IVP SCH (11:26)
[2025-09-20] MEDS: Enoxaparin 40 MG (0.4 mL) SYRINGE SC SCH (11:27)
[2025-09-20] MEDS: Famotidine 20 MG TAB PO SCH (19:39)
[2025-09-21] MEDS: Enoxaparin 40 MG (0.4 mL) SYRINGE SC SCH (08:25)
[2025-09-21] MEDS: HYDROcodone/Acetaminophen 5/325 mg Tablet PO PRN (12:04)
[2025-09-21] MEDS: PNEUMOC 20-VAL CONJ-DIP CRM/PF 0.5 ML SYRINGE IM ONE (12:05)
[2025-09-21] MEDS: Methocarbamol 500 MG TAB PO PRN (20:27)
[2025-09-22] MEDS ORDERED: Dextrose 50% Abboject 50 ML SYRINGE SLOW IVP PRN (12:55)
[2025-09-22] MEDS ORDERED: Glucagon 1 MG/ML KIT IM PRN (12:55)
[2025-09-22] MEDS: metFORMIN 500 MG TAB PO SCH (17:31)
[2025-09-22] MEDS: Melatonin 3 MG TAB PO SCH (23:29)
[2025-09-23 09:40] VITALS: BMI 32.5
[2025-09-24 05:48] LABS: #Basophils 0.04 10x3/uL (0.0-0.2); #Eosinophils 0.31 10x3/uL (0.0-0.7); #Monocytes 0.68 10x3/uL (0.11-0.59); #Neutrophils 6.29 10x3/uL (1.40-6.50); %Basophils 0.5 % (0.0-1.0); %Eosinophils 3.6 % (0.0-10.0); %Lymphocytes 15.2 % (21.0-51.0); %Monocytes 7.9 % (0.0-10.0); %Neutrophils 72.6 % (42.0-75.0); Hematocrit 45.2 % (42.0-52.0); Hemoglobin 16.3 g/dL (14.0-18.0); Mean Corpuscular Hemoglobin 31.9 pg (27.0-31.0); Mean Corpuscular Volume 88.5 fL (78.0-98.0); Platelet Count 200 10x3/uL (130-400); Red Blood Cell (RBC) Count 5.11 mill/uL (4.70-6.10); White Blood Cell (WBC) Count 8.66 10x3/uL (4.8-10.8)
[2025-09-24 06:02] LABS: Anion Gap 12 mmol/L (10-20); BUN (Urea Nitrogen) 17 mg/dL (8.4-25.7); Calc. Creatinine Clearance 107 mL/min (70-130); Calcium 8.8 mg/dL (7.8-10.44); Carbon Dioxide 20 mmol/L (23-31); Chloride 108 mmol/L (98-107); Glucose 248 mg/dL (83-110); Potassium 4.3 mmol/L (3.5-5.1); Sodium 136 mmol/L (136-145)
[2025-09-24] MEDS: Guaifenesin DM 100-10/5 ML UDCUP PO PRN (12:14)
[2025-09-24 13:20] LABS: Bacteria/HPF None Seen HPF (None Seen); CAUTI Indications for Culture Alt mental st,lethar; Glucose, Urine (Dipstick) Greater than 1000 mg/dL (Negative); Leukocyte Negative Leu/uL (Negative); Protein, Urine (Dipstick) Negative (Neg-Trace); RBC/HPF 0-3 HPF (0-3); Specific Gravity, Urine 1.027 (1.002-1.036); WBC/HPF 0-3 HPF (0-3)
[2025-09-24 13:21] LABS: Urine Culture Reflex No No
[2025-09-24] MEDS: Senokot S 8.6-50 MG TAB PO SCH (20:07)
[2025-09-25 01:26] LABS: ALT (SGPT) 12 U/L (Less than 45); AST (SGOT) 22 U/L (11-34); Albumin 3.3 g/dL (3.1-4.5); Alkaline Phosphatase 61 U/L (40-110); Anion Gap 17 mmol/L (10-20); BUN (Urea Nitrogen) 19 mg/dL (8.4-25.7); Bilirubin, Total 1.1 mg/dL (0.3-1.2); Calc. Creatinine Clearance 83 mL/min (70-130); Calcium 8.7 mg/dL (7.8-10.44); Carbon Dioxide 18 mmol/L (23-31); Chloride 108 mmol/L (98-107); Globulin 2.8 g/dL (2.4-3.5); Glucose 192 mg/dL (83-110); Potassium 3.7 mmol/L (3.5-5.1); Sodium 139 mmol/L (136-145)
[2025-09-25 05:24] LABS: #Basophils 0.05 10x3/uL (0.0-0.2); #Eosinophils 0.33 10x3/uL (0.0-0.7); #Monocytes 0.64 10x3/uL (0.11-0.59); #Neutrophils 5.91 10x3/uL (1.40-6.50); %Basophils 0.6 % (0.0-1.0); %Eosinophils 4.0 % (0.0-10.0); %Lymphocytes 16.0 % (21.0-51.0); %Monocytes 7.7 % (0.0-10.0); %Neutrophils 71.1 % (42.0-75.0); Hematocrit 43.3 % (42.0-52.0); Hemoglobin 15.0 g/dL (14.0-18.0); Mean Corpuscular Hemoglobin 31.4 pg (27.0-31.0); Mean Corpuscular Volume 90.8 fL (78.0-98.0); Platelet Count 208 10x3/uL (130-400); Red Blood Cell (RBC) Count 4.77 mill/uL (4.70-6.10); White Blood Cell (WBC) Count 8.31 10x3/uL (4.8-10.8)
[2025-09-26 05:42] LABS: #Basophils 0.04 10x3/uL (0.0-0.2); #Eosinophils 0.30 10x3/uL (0.0-0.7); #Monocytes 0.66 10x3/uL (0.11-0.59); #Neutrophils 5.47 10x3/uL (1.40-6.50); %Basophils 0.5 % (0.0-1.0); %Eosinophils 3.8 % (0.0-10.0); %Lymphocytes 17.9 % (21.0-51.0); %Monocytes 8.3 % (0.0-10.0); %Neutrophils 68.9 % (42.0-75.0); Hematocrit 42.7 % (42.0-52.0); Hemoglobin 14.9 g/dL (14.0-18.0); Mean Corpuscular Hemoglobin 31.7 pg (27.0-31.0); Mean Corpuscular Volume 90.9 fL (78.0-98.0); Platelet Count 220 10x3/uL (130-400); Red Blood Cell (RBC) Count 4.70 mill/uL (4.70-6.10); White Blood Cell (WBC) Count 7.94 10x3/uL (4.8-10.8)
[2025-09-26 05:56] LABS: Bacteria/HPF None Seen HPF (None Seen); CAUTI Indications for Culture Dysuria,urgency,freq; Glucose, Urine (Dipstick) 500 mg/dL (Negative); Leukocyte Negative Leu/uL (Negative); Protein, Urine (Dipstick) 20 mg/dL (Neg-Trace); Specific Gravity, Urine 1.034 (1.002-1.036); WBC/HPF 0-3 HPF (0-3)
[2025-09-26 05:57] LABS: Urine Culture Reflex No No
[2025-09-26 05:59] LABS: ALT (SGPT) 12 U/L (Less than 45); AST (SGOT) 21 U/L (11-34); Albumin 3.1 g/dL (3.1-4.5); Alkaline Phosphatase 57 U/L (40-110); Anion Gap 14 mmol/L (10-20); BUN (Urea Nitrogen) 15 mg/dL (8.4-25.7); Bilirubin, Total 1.8 mg/dL (0.3-1.2); Calc. Creatinine Clearance 99 mL/min (70-130); Calcium 8.7 mg/dL (7.8-10.44); Carbon Dioxide 20 mmol/L (23-31); Chloride 105 mmol/L (98-107); Globulin 2.9 g/dL (2.4-3.5); Glucose 178 mg/dL (83-110); Potassium 3.8 mmol/L (3.5-5.1); Sodium 135 mmol/L (136-145)
[2025-09-26] MEDS: Acetaminophen 325 MG TAB PO PRN (16:47)
[2025-09-26 22:05] VITALS: BMI 32.5
[2025-09-27 04:58] LABS: #Basophils 0.03 10x3/uL (0.0-0.2); #Eosinophils 0.32 10x3/uL (0.0-0.7); #Monocytes 0.65 10x3/uL (0.11-0.59); #Neutrophils 6.79 10x3/uL (1.40-6.50); %Basophils 0.3 % (0.0-1.0); %Eosinophils 3.5 % (0.0-10.0); %Lymphocytes 14.5 % (21.0-51.0); %Monocytes 7.1 % (0.0-10.0); %Neutrophils 74.1 % (42.0-75.0); Hematocrit 42.9 % (42.0-52.0); Hemoglobin 15.0 g/dL (14.0-18.0); Mean Corpuscular Hemoglobin 31.4 pg (27.0-31.0); Mean Corpuscular Volume 89.7 fL (78.0-98.0); Platelet Count 238 10x3/uL (130-400); Red Blood Cell (RBC) Count 4.78 mill/uL (4.70-6.10); White Blood Cell (WBC) Count 9.17 10x3/uL (4.8-10.8)
[2025-09-27 06:26] LABS: Albumin 3.1 g/dL (3.1-4.5); Calcium 8.9 mg/dL (7.8-10.44); Chloride 105 mmol/L (98-107); Potassium 3.9 mmol/L (3.5-5.1); Sodium 139 mmol/L (136-145)
[2025-09-27 06:27] LABS: Globulin 3.1 g/dL (2.4-3.5); Glucose 156 mg/dL (83-110)
[2025-09-27 06:28] LABS: Anion Gap 16 mmol/L (10-20); Carbon Dioxide 22 mmol/L (23-31)
[2025-09-27 06:30] LABS: Alkaline Phosphatase 57 U/L (40-110); Bilirubin, Total 1.5 mg/dL (0.3-1.2)
[2025-09-27 06:31] LABS: BUN (Urea Nitrogen) 10 mg/dL (8.4-25.7); Calc. Creatinine Clearance 110 mL/min (70-130)
[2025-09-27 06:33] LABS: ALT (SGPT) 12 U/L (Less than 45); AST (SGOT) 44 U/L (11-34)
[2025-09-28 00:51] LABS: ALT (SGPT) 11 U/L (Less than 45); AST (SGOT) 29 U/L (11-34); Albumin 2.9 g/dL (3.1-4.5); Alkaline Phosphatase 56 U/L (40-110); Anion Gap 14 mmol/L (10-20); BUN (Urea Nitrogen) 11 mg/dL (8.4-25.7); Bilirubin, Total 1.1 mg/dL (0.3-1.2); Calc. Creatinine Clearance 109 mL/min (70-130); Calcium 8.7 mg/dL (7.8-10.44); Carbon Dioxide 21 mmol/L (23-31); Chloride 106 mmol/L (98-107); Globulin 3.0 g/dL (2.4-3.5); Glucose 151 mg/dL (83-110); Potassium 3.9 mmol/L (3.5-5.1); Sodium 137 mmol/L (136-145)
[2025-09-28 05:32] LABS: #Basophils 0.04 10x3/uL (0.0-0.2); #Eosinophils 0.37 10x3/uL (0.0-0.7); #Monocytes 0.58 10x3/uL (0.11-0.59); #Neutrophils 5.42 10x3/uL (1.40-6.50); %Basophils 0.5 % (0.0-1.0); %Eosinophils 4.7 % (0.0-10.0); %Lymphocytes 16.9 % (21.0-51.0); %Monocytes 7.4 % (0.0-10.0); %Neutrophils 69.3 % (42.0-75.0); Hematocrit 40.7 % (42.0-52.0); Hemoglobin 14.7 g/dL (14.0-18.0); Mean Corpuscular Hemoglobin 32.4 pg (27.0-31.0); Mean Corpuscular Volume 89.6 fL (78.0-98.0); Platelet Count 256 10x3/uL (130-400); Red Blood Cell (RBC) Count 4.54 mill/uL (4.70-6.10); White Blood Cell (WBC) Count 7.82 10x3/uL (4.8-10.8)
[2025-09-29 05:35] LABS: #Basophils 0.06 10x3/uL (0.0-0.2); #Eosinophils 0.38 10x3/uL (0.0-0.7); #Monocytes 0.56 10x3/uL (0.11-0.59); #Neutrophils 4.92 10x3/uL (1.40-6.50); %Basophils 0.8 % (0.0-1.0); %Eosinophils 5.1 % (0.0-10.0); %Lymphocytes 19.6 % (21.0-51.0); %Monocytes 7.5 % (0.0-10.0); %Neutrophils 66.2 % (42.0-75.0); Hematocrit 43.7 % (42.0-52.0); Hemoglobin 15.2 g/dL (14.0-18.0); Mean Corpuscular Hemoglobin 31.5 pg (27.0-31.0); Mean Corpuscular Volume 90.5 fL (78.0-98.0); Platelet Count 289 10x3/uL (130-400); Red Blood Cell (RBC) Count 4.83 mill/uL (4.70-6.10); White Blood Cell (WBC) Count 7.44 10x3/uL (4.8-10.8)
[2025-09-29 06:07] LABS: ALT (SGPT) 15 U/L (Less than 45); AST (SGOT) 29 U/L (11-34); Albumin 3.0 g/dL (3.1-4.5); Alkaline Phosphatase 60 U/L (40-110); Anion Gap 16 mmol/L (10-20); BUN (Urea Nitrogen) 12 mg/dL (8.4-25.7); Bilirubin, Total 1.2 mg/dL (0.3-1.2); Calc. Creatinine Clearance 126 mL/min (70-130); Calcium 8.7 mg/dL (7.8-10.44); Carbon Dioxide 18 mmol/L (23-31); Chloride 106 mmol/L (98-107); Globulin 3.1 g/dL (2.4-3.5); Glucose 156 mg/dL (83-110); Potassium 3.8 mmol/L (3.5-5.1); Sodium 136 mmol/L (136-145)
[2025-09-30 07:06] LABS: #Basophils 0.07 10x3/uL (0.0-0.2); #Eosinophils 0.51 10x3/uL (0.0-0.7); #Monocytes 0.53 10x3/uL (0.11-0.59); #Neutrophils 5.19 10x3/uL (1.40-6.50); %Basophils 0.9 % (0.0-1.0); %Eosinophils 6.6 % (0.0-10.0); %Lymphocytes 17.4 % (21.0-51.0); %Monocytes 6.9 % (0.0-10.0); %Neutrophils 67.5 % (42.0-75.0); Hematocrit 43.1 % (42.0-52.0); Hemoglobin 15.6 g/dL (14.0-18.0); Mean Corpuscular Hemoglobin 32.1 pg (27.0-31.0); Mean Corpuscular Volume 88.7 fL (78.0-98.0); Platelet Count 298 10x3/uL (130-400); Red Blood Cell (RBC) Count 4.86 mill/uL (4.70-6.10); White Blood Cell (WBC) Count 7.69 10x3/uL (4.8-10.8)
[2025-09-30 07:21] LABS: ALT (SGPT) 18 U/L (Less than 45); AST (SGOT) 27 U/L (11-34); Albumin 3.1 g/dL (3.1-4.5); Alkaline Phosphatase 58 U/L (40-110); Anion Gap 16 mmol/L (10-20); BUN (Urea Nitrogen) 13 mg/dL (8.4-25.7); Bilirubin, Total 0.8 mg/dL (0.3-1.2); Calc. Creatinine Clearance 107 mL/min (70-130); Calcium 9.0 mg/dL (7.8-10.44); Carbon Dioxide 19 mmol/L (23-31); Chloride 108 mmol/L (98-107); Globulin 3.2 g/dL (2.4-3.5); Glucose 142 mg/dL (83-110); Potassium 3.8 mmol/L (3.5-5.1); Sodium 139 mmol/L (136-145)
[2025-10-01 05:08] LABS: #Basophils 0.09 10x3/uL (0.0-0.2); #Eosinophils 0.42 10x3/uL (0.0-0.7); #Monocytes 0.56 10x3/uL (0.11-0.59); #Neutrophils 6.23 10x3/uL (1.40-6.50); %Basophils 1.0 % (0.0-1.0); %Eosinophils 4.8 % (0.0-10.0); %Lymphocytes 15.5 % (21.0-51.0); %Monocytes 6.4 % (0.0-10.0); %Neutrophils 71.5 % (42.0-75.0); Hematocrit 41.8 % (42.0-52.0); Hemoglobin 14.5 g/dL (14.0-18.0); Mean Corpuscular Hemoglobin 31.6 pg (27.0-31.0); Mean Corpuscular Volume 91.1 fL (78.0-98.0); Platelet Count 341 10x3/uL (130-400); Red Blood Cell (RBC) Count 4.59 mill/uL (4.70-6.10); White Blood Cell (WBC) Count 8.72 10x3/uL (4.8-10.8)
[2025-10-01] MEDS ORDERED: Melatonin 3 MG TAB PO PRN (05:11)
[2025-10-01 05:32] LABS: ALT (SGPT) 14 U/L (Less than 45); AST (SGOT) 26 U/L (11-34); Albumin 3.1 g/dL (3.1-4.5); Alkaline Phosphatase 60 U/L (40-110); Anion Gap 13 mmol/L (10-20); BUN (Urea Nitrogen) 11 mg/dL (8.4-25.7); Bilirubin, Total 0.8 mg/dL (0.3-1.2); Calc. Creatinine Clearance 97 mL/min (70-130); Calcium 8.8 mg/dL (7.8-10.44); Carbon Dioxide 21 mmol/L (23-31); Chloride 108 mmol/L (98-107); Globulin 3.1 g/dL (2.4-3.5); Glucose 186 mg/dL (83-110); Potassium 3.5 mmol/L (3.5-5.1); Sodium 138 mmol/L (136-145)
[2025-10-01] MEDS ORDERED: Magnesium 2 GM/50 ML(in water) 2 GM in Premix 1 BAG IVPB PRN (07:30)
[2025-10-01] MEDS ORDERED: PHOS-NAK 1 PKT PACK PO PRN (07:30)
[2025-10-01] MEDS ORDERED: Potassium Chloride 20 MEQ in Premix 1 BAG IVPB PRN (07:30)
[2025-10-01 16:36] VITALS: BP 111/73; TEMP 97.4
== END 2025-10-01 21:03 | disposition home or self-care (01) | DRG 200 ==
LOC: SURG B 08:16
PROVIDERS: ADMIT Colon & Rectal Surgery; ATTEND Colon & Rectal Surgery
PROC: 0W9930Z Drainage of Right Pleural Cavity with Drainage Device, Percutaneous Approach (ICD-10-PCS; 2025-09-23)
PROC: 3E03329 Introduction of Other Anti-infective into Peripheral Vein, Percutaneous Approach (ICD-10-PCS; 2025-09-23)
PROC: 3E0334Z Introduction of Serum, Toxoid and Vaccine into Peripheral Vein, Percutaneous Approach (ICD-10-PCS; 2025-09-23)
PROC: 0W9930Z Drainage of Right Pleural Cavity with Drainage Device, Percutaneous Approach (ICD-10-PCS; principal; 2025-09-25)
DX: S27.0XXA Traumatic pneumothorax, initial encounter (principal); J98.11 Atelectasis; S22.31XA Fracture of one rib, right side, initial encounter for closed fracture; I25.10 Atherosclerotic heart disease of native coronary artery without angina pectoris; T79.7XXA Traumatic subcutaneous emphysema, initial encounter; E11.9 Type 2 diabetes mellitus without complications; W18.30XA Fall on same level, unspecified, initial encounter; Z95.5 Presence of coronary angioplasty implant and graft; M54.9 Dorsalgia, unspecified; I10 Essential (primary) hypertension; Z98.42 Cataract extraction status, left eye; Z98.41 Cataract extraction status, right eye; Z88.8 Allergy status to other drugs, medicaments and biological substances; I25.5 Ischemic cardiomyopathy; E03.9 Hypothyroidism, unspecified; Z95.1 Presence of aortocoronary bypass graft; Z23 Encounter for immunization
CPT/HCPCS: 36415; 36416; 71045; 80048; 80053; 81001; 85025; 93306; 94640; J1650; J1815; J1885; J2060; J2270; J3010; J3486; J7120